=== PATIENT | female | born 1945 | race American Indian/Alaskan Native ===

== ENCOUNTER 2018-10-16 12:27 | Observation (INO) | payer MEDICARE, OTHER ==
[2018-10-16 12:34] VITALS: BMI 26.0
--- NOTE | 2018-10-16 14:07 | ED PDOC ---
Arrival/HPI - General Chief Complaint: Syncope Time Seen by Provider: 10/16/18 12:31 Historian: Patient, Family - History of Present Illness Narrative History of Present Illness (Text): 10/16/18 14:04 73-year-old female presents today with right knee and left ankle pain status post syncopal episode last night. Patient states she was taking care of her grandchild and suddenly started to feel dizzy. I spoke with the patient's daughter who states that the patient passed out on the ground and was unconscious for a few seconds. Patient denies chest pain or shortness of breath. She denies neck or back pain. She denies abdominal pain. Patient denies fevers or chills. Patient states that due to the fall she injured her right knee and her left ankle. No medications have been taken for pain at home. Patient states she did not come to the emergency room last night but her daughter watched her at home for a few hours until she was feeling better. Patient denies dizziness at present time. No other complaints Past Medical History - Provider Review Nursing Documentation Reviewed: Yes - Travel History Have you recently traveled outside [place] w/in the past 3 mons?: No - Infectious Disease Hx of Infectious Diseases: None - Cardiac Hx Hypertension: Yes - Pulmonary Hx Asthma: Yes - HEENT Hx HEENT Disorder: Yes (WEARS RX GLASSES) Hx Glaucoma: Yes - Renal Hx Renal Disorder: No - Endocrine/Metabolic Hx Endocrine Disorders: No - Hematological/Oncological Hx Blood Disorders: No - Integumentary Hx Dermatological Disorder: No - Musculoskeletal/Rheumatological Hx Arthritis: Yes - Gastrointestinal Hx Gastrointestinal Disorders: Yes (HERNIORHAPPHY) - Genitourinary/Gynecological Hx Genitourinary Disorders: Yes (3 CAESEREAN SECTIONS,ONE STILL ,,RIGHT BREAST REMOVAL OF SCAR TISSUE,) Other/Comment: TUBAL LIGATION - Psychiatric Hx Depression: No Hx Emotional Abuse: No Hx Physical Abuse: No Hx Substance Use: No - Past Surgical History Past Surgical History: Non-Contributing - Surgical History Hx Section: Yes - Anesthesia Hx Anesthesia: Yes Hx Anesthesia Reactions: No Hx Malignant Hyperthermia: No - Suicidal Assessment Feels Threatened In Home Enviroment: No Family/Social History - Physician Review Nursing Documentation Reviewed: Yes Family/Social History: Unknown Family HX Smoking Status: Never Smoked Hx Alcohol Use: No Hx Substance Use: No Allergies/Home Meds Allergies/Adverse Reactions: Allergies acetaminophen [From Percocet] Allergy (Verified 10/16/18 12:35) VOMITING codeine Allergy (Verified 10/16/18 12:35) SHORTNESS OF BREATH oxycodone [From Percocet] Allergy (Verified 10/16/18 12:35) VOMITING Home Medications: Home Meds Medication Instructions Recorded Confirmed Amlodipine/Valsartan 1 tab PO DAILY 10/16/18 10/16/18 [Amlodipine-Valsartan 10-160 mg] Aspirin [Adult Low Dose Aspirin EC] 1 tab PO DAILY 10/16/18 10/16/18 Atorvastatin [Lipitor] 1 tab PO HS 10/16/18 10/16/18 Clopidogrel [Plavix] 1 tab PO DAILY 10/16/18 10/16/18 Ferrous Sulfate [Feosol] 1 tab PO DAILY 10/16/18 10/16/18 Review of Systems - Review of Systems Constitutional: Fatigue. absent: Fevers ENT: absent: Sore Throat, Sinus Congestion Respiratory: absent: SOB, Cough Cardiovascular: Syncope. absent: Chest Pain, Palpitations Gastrointestinal: absent: Abdominal Pain, Nausea, Vomiting Genitourinary Female: absent: Dysuria, Frequency Musculoskeletal: Arthralgias. absent: Back Pain, Neck Pain Skin: absent: Rash, Pruritis Neurological: Dizziness. absent: Headache Psychiatric: absent: Anxiety, Depression Physical Exam Vital Signs Temp Pulse Resp BP Pulse Ox 10/16/18 12:45 97.4 F L 84 18 156/69 H 97 Temperature: Afebrile Blood Pressure: Hypertensive Pulse: Regular Respiratory Rate: Normal Appearance: Positive for: Well-Appearing, Non-Toxic, Comfortable Pain Distress: None Mental Status: Positive for: Alert and Oriented X 3 - Systems Exam Head: Present: Atraumatic Mouth: Present: Moist Mucous Membranes Neck: Present: Normal Range of Motion Respiratory/Chest: Present: Clear to Auscultation, Good Air Exchange. No: Respiratory Distress, Accessory Muscle Use Cardiovascular: Present: Regular Rate and Rhythm, Normal S1, S2. No: Murmurs Abdomen: No: Tenderness, Distention, Peritoneal Signs, Rebound, Guarding Back: Present: Normal Inspection Upper Extremity: Present: Normal Inspection, Normal ROM Lower Extremity: Present: Tenderness (right knee; + ttp over medial aspect of the knee; full rom of knee with pain; left ankle; + edema and tenderness over the lateral malleolus. sensation intact. cap refill <2. ), Swelling Neurological: Present: GCS=15, Speech Normal Skin: Present: Warm, Dry, Normal Color. No: Rashes Psychiatric: Present: Alert, Oriented x 3 Medical Decision Making ED Course and Treatment: 10/16/18 14:53 73yr old female presents today with syncopal episode, now with right knee pain and left ankle pain. cbc;wnl cmp; wnl trop: wnl bnp: 535 ekg;NSR at 81 b/m no st elevations. normal axis; normal intervals. cxr: wnl xray right knee; no fracture xray left ankle; no fracture ct head; IMPRESSION: Nonspecific white matter changes. pt reassessment; pt resting comfortably in er. no distress. asa given PO case discussed with Dr. case in depth. will Admit observational status to Tele for syncope impression; syncope, knee pain, ankle pain Admit observational status to tele - RAD Interpretation Radiology Orders: 10/16/18 13:30 HEAD W/O CONTRAST [CT] Stat 10/16/18 13:31 CHEST PORTABLE [RAD] Stat ANKLE LEFT 3 VIEWS ROUTINE [RAD] Stat KNEE W PATELLA RIGHT 3 VIEW [RAD] Stat Disposition/Present on Arrival - Present on Arrival Any Indicators Present on Arrival: No History of DVT/PE: No History of Uncontrolled Diabetes: No Urinary Catheter: No History of Decub. Ulcer: No History Surgical Site Infection Following: None - Disposition Have Diagnosis and Disposition been Completed?: Yes Diagnosis: Syncope, Knee pain, Ankle pain Disposition: HOSPITALIZED Disposition Time: 16:00 Patient Plan: Observation Condition: FAIR Discharge Instructions (ExitCare): Syncope (ED) Referrals: David Darby MD [Primary Care Provider] - Follow up with primary
[2018-10-16 14:13] LABS: BASO # 0.02 K/mm3 (0.0-2.0); BASO % 0.2 % (0.0-3.0); EOS % 0.4 % (1.5-5.0); HEMOGLOBIN 12.1 g/dL (12.0-16.0); LYMPH # 2.2 (1.2-3.4); LYMPH % 26.1 % (22.0-35.0); MEAN CELL VOLUME 87.6 fl (80.0-105.0); MEAN CORPUSCULAR HEMOGLOBIN 28.3 pg (25.0-35.0); MEAN CORPUSCULAR HGB CONC 32.4 g/dl (31.0-37.0); MEAN PLATELET VOLUME 10.5 fl (7.0-11.0); MONO # 0.9 (0.1-0.6); MONO % 10.7 % (1.0-6.0); PH,URINE 6.5 (4.7-8.0); RBC 4.27 10^6/uL (3.5-6.1); RED CELL DISTRIBUTION WIDTH 13.9 % (11.5-14.5); URINE BILIRUBIN NEGATIVE (NEGATIVE); URINE BLOOD NEGATIVE (NEGATIVE); URINE GLUCOSE (UA) NEGATIVE (NEGATIVE); URINE LEUKOCYTE ESTERASE NEGATIVE Leu/uL (NEGATIVE); URINE PROTEIN NEGATIVE mg/dL (<30 mg/dL); URINE UROBILINOGEN 0.2 E.U./dL (<1 E.U./dL); WHITE BLOOD COUNT 8.5 10^3/uL (4.5-11.0)
[2018-10-16 14:17] LABS: URINE APPEARANCE CLEAR (CLEAR); URINE COLOR STRAW (YELLOW)
[2018-10-16 14:20] LABS: INR 1.11; PARTIAL THROMBOPLASTIN TIME 29.8 Seconds (26.9-38.3); PROTHROMBIN TIME 12.3 SECONDS (9.4-12.5)
[2018-10-16 14:21] LABS: ALB/GLOB RATIO 1.1 (1.1-1.8); ALBUMIN 4.4 g/dL (3.0-4.8); ALT/SGPT 26 U/L (7-56); AST/SGOT 33 U/L (14-36); BLOOD UREA NITROGEN 16 mg/dL (7-21); CALCIUM 10.2 mg/dL (8.4-10.5); GFR NON-AFRICAN AMERICAN > 60; LIPASE 272 U/L (23-300)
[2018-10-16 14:33] LABS: B-TYPE NATRIURETIC PEPTIDE 535 pg/mL (0-450); TROPONIN I < 0.01 ng/mL
--- NOTE | 2018-10-16 14:39 | CT ---
Date of service: 10/16/2018 PROCEDURE: CT HEAD WITHOUT CONTRAST. HISTORY: syncope COMPARISON: None available. TECHNIQUE: Axial computed tomography images were obtained through the head/brain without intravenous contrast. Radiation dose: Total exam DLP = 912.56 mGy-cm. This CT exam was performed using one or more of the following dose reduction techniques: Automated exposure control, adjustment of the mA and/or kV according to patient size, and/or use of iterative reconstruction technique. FINDINGS: HEMORRHAGE: No intracranial hemorrhage. BRAIN: No mass effect or edema. Scattered periventricular and subcortical white matter hypodensities, which are nonspecific, but often seen with chronic microvascular ischemic disease. Please note that MRI with diffusion imaging is more sensitive in the detection of acute ischemic event. VENTRICLES: No hydrocephalus. CALVARIUM: Unremarkable. PARANASAL SINUSES: Unremarkable as visualized. No significant inflammatory changes. MASTOID AIR CELLS: Unremarkable as visualized. No inflammatory changes. OTHER FINDINGS: None. IMPRESSION: Nonspecific white matter changes. Please note that MRI with diffusion imaging is more sensitive in the detection of acute ischemic event.
--- NOTE | 2018-10-16 14:58 | RAD ---
HISTORY: syncope COMPARISON: Chest xray performed 09/30/13 TECHNIQUE: Chest, one view. FINDINGS: LUNGS: No focal consolidation. Please note that chest x-ray has limited sensitivity for the detection of pulmonary masses. PLEURA: No significant pleural effusion identified. No definite pneumothorax . CARDIOVASCULAR: The cardiomediastinal silhouette appears within normal limits of size. Dense atherosclerotic calcifications. OSSEOUS STRUCTURES: No acute osseous abnormality identified. VISUALIZED UPPER ABDOMEN: Unremarkable. OTHER FINDINGS: None. IMPRESSION: No focal consolidation.
--- NOTE | 2018-10-16 15:02 | RAD ---
PROCEDURE: Right Knee Radiographs. 2 views. HISTORY: knee pain COMPARISON: Bilateral knee radiographs performed 12/23/12 FINDINGS: BONES: No acute displaced fracture. JOINTS: No dislocation. JOINT EFFUSION: Small suprapatellar effusion. OTHER FINDINGS: None. IMPRESSION: Small suprapatellar effusion. No acute displaced fracture or dislocation identified. If symptoms persist, or if there is continued clinical concern, x-ray follow-up in 7-10 days should be considered.
--- NOTE | 2018-10-16 15:07 | RAD ---
PROCEDURE: Left ankle Radiographs. Three views. HISTORY: ankle pain COMPARISON: None available. FINDINGS: BONES: No acute displaced fracture. JOINTS: No dislocation. SOFT TISSUES: Mild soft tissue swelling. No evidence of radiopaque foreign body. OTHER FINDINGS: None. IMPRESSION: Mild soft tissue swelling. No acute displaced fracture or dislocation identified. If high clinical index of suspicion for occult fracture, suggest cross-sectional imaging.
--- NOTE | 2018-10-16 16:26 | CP.PCM.HP ---
<Negro Mayer - Last Filed: 10/16/18 18:40> History of Present Illness - History of Present Illness History of Present Illness: Negro Mayer, PGY1 H&P for Dr. Sarmiento cc: "syncope" Patient is a 73-year-old female with PMHx HTN, stress incontinence, glaucoma, PVD (bilateral stents in the legs), Asthma who presented to the ED with left ankle pain and right knee pain s/p syncopal episode. She said she was sitting in her chair yesterday and eating breakfast when she passed out and lost consciousness. Patient's daughter was with her and said this episode lasted for 10 minutes in duration. Patient did not have any chest pain, shortness of breath, or palpitations during this incident. She did have some dizziness and a vomiting episode after waking up. She was not post-ictal afterwards. She denied any tongue biting and loss of bowel/bladder during the incident. Patient endorses some fatigue. Currently, she denies cp, sob, n/v/d, headache, dizziness. She said this is the first time this episode has happened. The reason she waiting a day to come in to the hospital is because she said she had to take care of her granddaughter. Patient claims she was previously admitted to a different hospital ([facility] for which she was admitted for 2 weeks. Patient is not a reliable historian. A full 12 point ROS was conducted and unremarkable except as stated above. PMHx: HTN, stress incontinence, glaucoma, PVD (bilateral stents in the legs), Asthma PSHx: denies Meds: see MAR Allergies: codeine, acetaminophen, oxycodone SocialHx: denies EtOH, smoking, illicit drug use. FamHx: non-contributory Present on Admission - Present on Admission Any Indicators Present on Admission: No Review of Systems - Review of Systems All systems: reviewed and no additional remarkable complaints except (as per HPI) Past Patient History - Infectious Disease Hx of Infectious Diseases: None - Past Social History Smoking Status: Never Smoked - CARDIAC Hx Hypertension: Yes - PULMONARY Hx Asthma: Yes - HEENT Hx HEENT Problems: Yes (WEARS RX GLASSES) Hx Glaucoma: Yes - RENAL Hx Chronic Kidney Disease: No - ENDOCRINE/METABOLIC Hx Endocrine Disorders: No - HEMATOLOGICAL/ONCOLOGICAL Hx Blood Disorders: No - INTEGUMENTARY Hx Dermatological Problems: No - MUSCULOSKELETAL/RHEUMATOLOGICAL Hx Arthritis: Yes - GASTROINTESTINAL Hx Gastrointestinal Disorders: Yes (HERNIORHAPPHY) - GENITOURINARY/GYNECOLOGICAL Hx Genitourinary Disorders: Yes (3 CAESEREAN SECTIONS,ONE STILL ,,RIGHT BREAST REMOVAL OF SCAR TISSUE,) Other/Comment: TUBAL LIGATION - PSYCHIATRIC Hx Depression: No Hx Emotional Abuse: No Hx Physical Abuse: No Hx Substance Use: No - SURGICAL HISTORY Hx Section: Yes - ANESTHESIA Hx Anesthesia: Yes Hx Anesthesia Reactions: No Hx Malignant Hyperthermia: No Meds Allergies/Adverse Reactions: Allergies Allergy/AdvReac Type Severity Reaction Status Date / Time acetaminophen [From Percocet] Allergy VOMITING Verified 10/16/18 12:35 codeine Allergy SHORTNESS Verified 10/16/18 12:35 OF BREATH oxycodone [From Percocet] Allergy VOMITING Verified 10/16/18 12:35 Physical Exam - Constitutional Appears: No Acute Distress - Head Exam Head Exam: ATRAUMATIC, NORMAL INSPECTION, NORMOCEPHALIC - Eye Exam Eye Exam: EOMI, Normal appearance Pupil Exam: NORMAL ACCOMODATION, PERRL - ENT Exam ENT Exam: Mucous Membranes Moist - Respiratory Exam Respiratory Exam: Clear to Auscultation Bilateral, NORMAL BREATHING PATTERN. absent: Chest Wall Tenderness, Rales, Rhonchi, Wheezes, Respiratory Distress - Cardiovascular Exam Cardiovascular Exam: RRR, +S1, +S2 - GI/Abdominal Exam GI & Abdominal Exam: Normal Bowel Sounds, Soft. absent: Firm, Guarding, Hernia, Rebound, Rigid, Tenderness - Extremities Exam Extremities exam: Positive for: normal capillary refill, pedal pulses present. Negative for: calf tenderness, full ROM Additional comments: Left ankle is tender to palpation. Right knee has a mild effusion. - Back Exam Back exam: NORMAL INSPECTION - Neurological Exam Neurological exam: Alert, CN II-XII Intact, Oriented x3, Reflexes Normal - Psychiatric Exam Psychiatric exam: Normal Affect, Normal Mood - Skin Skin Exam: Dry, Intact, Normal Color, Warm Results - Vital Signs Recent Vital Signs: Last Vital Signs Temp 97.4 F L 10/16/18 12:45 Pulse 84 10/16/18 12:45 Resp 18 10/16/18 12:45 BP 156/69 H 10/16/18 12:45 Pulse Ox 97 10/16/18 12:45 - Labs Result Diagrams: 10/16/18 14:00 10/16/18 14:00 Labs: Laboratory Results - last 24 hr 10/16/18 10/16/18 10/16/18 14:00 14:00 14:00 WBC 8.5 RBC 4.27 Hgb 12.1 Hct 37.4 MCV 87.6 MCH 28.3 MCHC 32.4 RDW 13.9 Plt Count 311 MPV 10.5 Neut % (Auto) 62.6 Lymph % (Auto) 26.1 [place] % (Auto) 10.7 H Eos % (Auto) 0.4 L Baso % (Auto) 0.2 Lymph # (Auto) 2.2 [place] # (Auto) 0.9 H Eos # (Auto) 0.0 Baso # (Auto) 0.02 Absolute Neuts (auto) 5.31 PT INR APTT Sodium 140 Potassium 4.0 Chloride 104 Carbon Dioxide 27 Anion Gap 14 BUN 16 Creatinine 0.7 Est GFR ( Amer) > 60 Est GFR (Non-Af Amer) > 60 Random Glucose 98 Calcium 10.2 Total Bilirubin 0.5 AST 33 ALT 26 Alkaline Phosphatase 93 Lactate Dehydrogenase 575 Total Creatine Kinase 96 Troponin I < 0.01 NT-Pro-B Natriuret Pep 535 H Total Protein 8.3 Albumin 4.4 Globulin 3.9 Albumin/Globulin Ratio 1.1 Lipase 272 Urine Color Straw Urine Appearance Clear Urine pH 6.5 Ur Specific [place] <= 1.005 Urine Protein Negative Urine Glucose (UA) Negative Urine Ketones Negative Urine Blood Negative Urine Nitrate Negative Urine Bilirubin Negative Urine Urobilinogen 0.2 Ur Leukocyte Esterase Negative 10/16/18 14:00 WBC RBC Hgb Hct MCV MCH MCHC RDW Plt Count MPV Neut % (Auto) Lymph % (Auto) [place] % (Auto) Eos % (Auto) Baso % (Auto) Lymph # (Auto) [place] # (Auto) Eos # (Auto) Baso # (Auto) Absolute Neuts (auto) PT 12.3 INR 1.11 APTT 29.8 Sodium Potassium Chloride Carbon Dioxide Anion Gap BUN Creatinine Est GFR ( Amer) Est GFR (Non-Af Amer) Random Glucose Calcium Total Bilirubin AST ALT Alkaline Phosphatase Lactate Dehydrogenase Total Creatine Kinase Troponin I NT-Pro-B Natriuret Pep Total Protein Albumin Globulin Albumin/Globulin Ratio Lipase Urine Color Urine Appearance Urine pH Ur Specific [place] Urine Protein Urine Glucose (UA) Urine Ketones Urine Blood Urine Nitrate Urine Bilirubin Urine Urobilinogen Ur Leukocyte Esterase Assessment & Plan - Assessment and Plan (Free Text) Assessment: Patient is a 73-year-old female with PMHx HTN, stress incontinence, glaucoma, PVD (bilateral stents in the legs), Asthma who presented to the ED with left ankle pain and right knee pain s/p syncopal episode. Patient will be admitted for syncope. Plan: Syncope - monitor on tele - trend trops q6; initial negative x1 - fall precautions - neurochecks - seizure precautions - echo - CT Head: no acute changes - CXR: no acute changes - orthostatic vital signs - Cardiology on consult (Dr. Lucero). Follow up recs. - EKG: NSR with no acute ST or T wave changes. Left Ankle Pain and Right Knee Pain likely due to muscle strain - s/p syncopal episode - PT - left ankle brace - pain control with toradol 15mg IVP q6 prn - Left Ankle XR: mild soft tissue swelling, no fracture - Right Knee XR: small supra-patellar effusion; no fracture HTN - resume home BP med PVD (Stents in bilateral legs) - resume home asa and plavix - Cardio on consult Asthma - duonebs prn - no symptoms at this time ppx: - hep sc Diet: HHD Dispo: Observe patient on tele. Further recs from cardio. Case was discussed and reviewed with Dr. Sarmiento. <Marcela Sarmiento - Last Filed: 10/17/18 11:49> Results - Vital Signs Recent Vital Signs: Last Vital Signs Temp 98.2 F 10/17/18 06:00 Pulse 64 10/17/18 06:00 Resp 19 10/17/18 06:00 BP 146/67 10/17/18 10:23 Pulse Ox 99 10/16/18 20:42 - Labs Result Diagrams: 10/17/18 07:00 10/17/18 07:00 Labs: Laboratory Results - last 24 hr 10/16/18 10/16/18 10/16/18 14:00 14:00 14:00 WBC 8.5 RBC 4.27 Hgb 12.1 Hct 37.4 MCV 87.6 MCH 28.3 MCHC 32.4 RDW 13.9 Plt Count 311 MPV 10.5 Neut % (Auto) 62.6 Lymph % (Auto) 26.1 [place] % (Auto) 10.7 H Eos % (Auto) 0.4 L Baso % (Auto) 0.2 Lymph # (Auto) 2.2 [place] # (Auto) 0.9 H Eos # (Auto) 0.0 Baso # (Auto) 0.02 Absolute Neuts (auto) 5.31 PT INR APTT Sodium 140 Potassium 4.0 Chloride 104 Carbon Dioxide 27 Anion Gap 14 BUN 16 Creatinine 0.7 Est GFR ( Amer) > 60 Est GFR (Non-Af Amer) > 60 Random Glucose 98 Calcium 10.2 Phosphorus Magnesium Total Bilirubin 0.5 AST 33 ALT 26 Alkaline Phosphatase 93 Lactate Dehydrogenase 575 Total Creatine Kinase 96 Troponin I < 0.01 NT-Pro-B Natriuret Pep 535 H Total Protein 8.3 Albumin 4.4 Globulin 3.9 Albumin/Globulin Ratio 1.1 Lipase 272 Urine Color Straw Urine Appearance Clear Urine pH 6.5 Ur Specific [place] <= 1.005 Urine Protein Negative Urine Glucose (UA) Negative Urine Ketones Negative Urine Blood Negative Urine Nitrate Negative Urine Bilirubin Negative Urine Urobilinogen 0.2 Ur Leukocyte Esterase Negative 10/16/18 10/17/18 10/17/18 14:00 01:00 07:00 WBC RBC Hgb Hct MCV MCH MCHC RDW Plt Count MPV Neut % (Auto) Lymph % (Auto) [place] % (Auto) Eos % (Auto) Baso % (Auto) Lymph # (Auto) [place] # (Auto) Eos # (Auto) Baso # (Auto) Absolute Neuts (auto) PT 12.3 INR 1.11 APTT 29.8 Sodium 142 Potassium 3.9 Chloride 106 Carbon Dioxide 29 Anion Gap 11 BUN 14 Creatinine 0.8 Est GFR ( Amer) > 60 Est GFR (Non-Af Amer) > 60 Random Glucose 88 Calcium 9.8 Phosphorus 4.0 Magnesium 1.8 Total Bilirubin 0.4 AST 32 ALT 22 Alkaline Phosphatase 80 Lactate Dehydrogenase Total Creatine Kinase Troponin I < 0.01 NT-Pro-B Natriuret Pep Total Protein 7.4 Albumin 3.9 Globulin 3.4 Albumin/Globulin Ratio 1.1 Lipase Urine Color Urine Appearance Urine pH Ur Specific [place] Urine Protein Urine Glucose (UA) Urine Ketones Urine Blood Urine Nitrate Urine Bilirubin Urine Urobilinogen Ur Leukocyte Esterase 10/17/18 07:00 WBC 5.5 D RBC 3.85 Hgb 10.7 L Hct 33.7 L MCV 87.5 MCH 27.8 MCHC 31.8 RDW 13.8 Plt Count 302 MPV 10.5 Neut % (Auto) 51.1 Lymph % (Auto) 37.6 H [place] % (Auto) 10.2 H Eos % (Auto) 0.7 L Baso % (Auto) 0.4 Lymph # (Auto) 2.1 [place] # (Auto) 0.6 Eos # (Auto) 0.0 Baso # (Auto) 0.02 Absolute Neuts (auto) 2.82 PT INR APTT Sodium Potassium Chloride Carbon Dioxide Anion Gap BUN Creatinine Est GFR ( Amer) Est GFR (Non-Af Amer) Random Glucose Calcium Phosphorus Magnesium Total Bilirubin AST ALT Alkaline Phosphatase Lactate Dehydrogenase Total Creatine Kinase Troponin I NT-Pro-B Natriuret Pep Total Protein Albumin Globulin Albumin/Globulin Ratio Lipase Urine Color Urine Appearance Urine pH Ur Specific [place] Urine Protein Urine Glucose (UA) Urine Ketones Urine Blood Urine Nitrate Urine Bilirubin Urine Urobilinogen Ur Leukocyte Esterase Attending/Attestation - Attestation I have personally seen and examined this patient.: Yes I have fully participated in the care of the patient.: Yes I have reviewed all pertinent clinical information: Yes Notes (Text): 10/17/18 11:45 Medical record note made by the resident after discussion with my direction and input after the patient was personally seen and examined by me. I have reviewed the chart and agree that the record accurately reflects by personal performance of the history, physical exam, data review, and medical decision-making, in the course for the patient. I have also personally directed the plan of care. 73-year-old female with PMH of HTN, , glaucoma, PVD (bilateral stents in the legs), PUD is admitted with , H/O fall from chair 10/14/18 and loss of consciousness for 10 minutes,patient is also c/o left ankle pain and right knee pain. CT head is negative. X rays are negative for fracture, has left ankle strain. We will monitor patient in telemetry for arrhythmia, we will get 2D Echo, and will also get Cardiology consult. We will also get Physical therapy evaluation. Management plan was discussed in detail with patient. Education was provided.
[2018-10-16] MEDS ORDERED: Albuterol-Ipratrop 3 mg / 0.5 (3 ml) UD IH PRN (18:04)
[2018-10-16] MEDS ORDERED: Pneumococcal 23-Valent Vaccine IM ONE (21:48)
[2018-10-16] MEDS ORDERED: Influenza Vaccine 60 mcg/0.5 mL SYR (4YR UP) IM ONE (21:48)
--- NOTE | 2018-10-16 22:32 | CARD ---
APPROVED REPORT Date of service: 10/16/2018 EKG Measurement Heart [id number] <Conclusion> Normal sinus rhythm Normal ECG
[2018-10-16] MEDS: COMBIGAN EYE OU SCH (23:35)
[2018-10-17 07:55] LABS: BASO # 0.02 K/mm3 (0.0-2.0); BASO % 0.4 % (0.0-3.0); EOS % 0.7 % (1.5-5.0); HEMOGLOBIN 10.7 g/dL (12.0-16.0); LYMPH # 2.1 (1.2-3.4); LYMPH % 37.6 % (22.0-35.0); MEAN CELL VOLUME 87.5 fl (80.0-105.0); MEAN CORPUSCULAR HEMOGLOBIN 27.8 pg (25.0-35.0); MEAN CORPUSCULAR HGB CONC 31.8 g/dl (31.0-37.0); MEAN PLATELET VOLUME 10.5 fl (7.0-11.0); MONO # 0.6 (0.1-0.6); MONO % 10.2 % (1.0-6.0); RBC 3.85 10^6/uL (3.5-6.1); RED CELL DISTRIBUTION WIDTH 13.8 % (11.5-14.5); WHITE BLOOD COUNT 5.5 10^3/uL (4.5-11.0)
[2018-10-17 08:09] LABS: ALB/GLOB RATIO 1.1 (1.1-1.8); ALBUMIN 3.9 g/dL (3.0-4.8); ALT/SGPT 22 U/L (7-56); AST/SGOT 32 U/L (14-36); BLOOD UREA NITROGEN 14 mg/dL (7-21); CALCIUM 9.8 mg/dL (8.4-10.5); GFR NON-AFRICAN AMERICAN > 60
--- NOTE | 2018-10-17 09:25 | CP.PCM.CON ---
History of Present Illness - History of Present Illness History of Present Illness: Awake, alert, complaining of left ankle and right knee pain Reason for consultation: Cardiac evaluation of syncopal episode Brief history of present illness: A 73 year old female who came in to the ER due to syncopal episode causing to fall and left ankle pain and right knee pain post syncopal episode. History of hypertension, stress incontinence, glaucoma, peripheral vascular disease (bilateral stents in the legs), asthma Seen and examined by me and Dr. Lucero Review of Systems - Review of Systems All systems: reviewed and no additional remarkable complaints except Review of Systems: as per HPI Past Patient History - Infectious Disease Hx of Infectious Diseases: None - Past Social History Smoking Status: Never Smoked - CARDIAC Hx Cardiac Disorders: Yes Hx Hypercholesterolemia: Yes Hx Hypertension: Yes Hx Peripheral Vascular Disease: Yes (b/l stents in legs) Other/Comment: cp in 2013 - PULMONARY Hx Respiratory Disorders: Yes Hx Asthma: Yes Other/Comment: sx to remove lung mass years ago benign - NEUROLOGICAL Hx Neurological Disorder: Yes (pinched nerve left foot) - HEENT Hx HEENT Problems: Yes (WEARS RX GLASSES) Hx Glaucoma: Yes - RENAL Hx Chronic Kidney Disease: No - ENDOCRINE/METABOLIC Hx Endocrine Disorders: No - HEMATOLOGICAL/ONCOLOGICAL Hx Blood Disorders: No - INTEGUMENTARY Hx Dermatological Problems: No Other/Comment: right swelling bruising pain & left ankle swelling bruising pain from syncopal episode last night, dry skin to both feet - MUSCULOSKELETAL/RHEUMATOLOGICAL Hx Falls: Yes (passed out and fell 10/15/18) - GASTROINTESTINAL Hx Gastrointestinal Disorders: Yes (HERNIORHAPPHY) - GENITOURINARY/GYNECOLOGICAL Hx Genitourinary Disorders: Yes (3 CAESEREAN SECTIONS,ONE STILL ,,RIGHT BREAST REMOVAL OF SCAR TISSUE,) Hx Incontinence: Yes (leaking & stress incontinence) Other/Comment: TUBAL LIGATION - PSYCHIATRIC Hx Substance Use: No - SURGICAL HISTORY Hx Surgeries: Yes (BILATERAL FOOT SURGERY FROM FALL,TUBAL LIGATION,3 C/S,LUNG SURGERY,HAMMERTO) Other/Comment: surgical removal of scar tissue from right breast due to an injury, hammertoes with sx x 2 - ANESTHESIA Hx Anesthesia: Yes Hx Anesthesia Reactions: No Hx Malignant Hyperthermia: No Meds Allergies/Adverse Reactions: Allergies Allergy/AdvReac Type Severity Reaction Status Date / Time acetaminophen [From Percocet] Allergy VOMITING Verified 10/16/18 12:35 codeine Allergy SHORTNESS Verified 10/16/18 12:35 OF BREATH oxycodone [From Percocet] Allergy VOMITING Verified 10/16/18 12:35 - Medications Medications: Current Medications Albuterol/Ipratropium (Duoneb 3 Mg/0.5 Mg (3 Ml) Ud) 3 ml IH Q4H PRN PRN Reason: Shortness of Breath Amlodipine Besylate (Norvasc) 10 mg PO DAILY [facility] Aspirin (Ecotrin) 81 mg PO DAILY [facility] Atorvastatin Calcium (Lipitor) 20 mg PO HS [facility] Last Admin: 10/16/18 23:00 Dose: Not Given Clopidogrel Bisulfate (Plavix) 75 mg PO DAILY [facility] Ferrous Sulfate (Feosol) 324 mg PO DAILY [facility] Heparin Sodium (Porcine) (Heparin) 5,000 units SC Q8 [facility]; Protocol Last Admin: 10/17/18 05:21 Dose: 5,000 units Home Med (Home Med) 1 unit OU BID [facility] Last Admin: 10/16/18 23:35 Dose: 1 unit Ibuprofen (Motrin Tab) 600 mg PO Q6H PRN PRN Reason: Pain, moderate (4-7) Ketorolac Tromethamine (Toradol) 15 mg IVP Q6 PRN PRN Reason: Pain, severe (8-10) Losartan Potassium (Cozaar) 100 mg PO DAILY [facility] Pantoprazole Sodium (Protonix Ec Tab) 40 mg PO 0600 [facility] Physical Exam - Constitutional Appears: Non-toxic, No Acute Distress - Head Exam Head Exam: NORMAL INSPECTION, NORMOCEPHALIC - Eye Exam Eye Exam: Normal appearance Pupil Exam: NORMAL ACCOMODATION - ENT Exam ENT Exam: Mucous Membranes Moist, Normal Exam - Respiratory Exam Respiratory Exam: Decreased Breath Sounds, Clear to Auscultation Bilateral, NORMAL BREATHING PATTERN - Cardiovascular Exam Cardiovascular Exam: REGULAR RHYTHM, +S1, +S2 - GI/Abdominal Exam GI & Abdominal Exam: Normal Bowel Sounds, Soft - Extremities Exam Additional comments: limited ROM, left ankle swelling, right knee swelling - Neurological Exam Neurological exam: Alert, Oriented x3 - Psychiatric Exam Psychiatric exam: Normal Affect, Normal Mood - Skin Skin Exam: Dry, Normal Color, Warm Results - Vital Signs Recent Vital Signs: Last Vital Signs Temp 98.2 F 10/17/18 06:00 Pulse 64 10/17/18 06:00 Resp 19 10/17/18 06:00 BP 132/65 10/17/18 06:00 Pulse Ox 99 10/16/18 20:42 - Labs Result Diagrams: 10/17/18 07:00 10/17/18 07:00 Labs: Laboratory Results - last 24 hr 10/16/18 10/16/18 10/16/18 14:00 14:00 14:00 WBC 8.5 RBC 4.27 Hgb 12.1 Hct 37.4 MCV 87.6 MCH 28.3 MCHC 32.4 RDW 13.9 Plt Count 311 MPV 10.5 Neut % (Auto) 62.6 Lymph % (Auto) 26.1 [place] % (Auto) 10.7 H Eos % (Auto) 0.4 L Baso % (Auto) 0.2 Lymph # (Auto) 2.2 [place] # (Auto) 0.9 H Eos # (Auto) 0.0 Baso # (Auto) 0.02 Absolute Neuts (auto) 5.31 PT INR APTT Sodium 140 Potassium 4.0 Chloride 104 Carbon Dioxide 27 Anion Gap 14 BUN 16 Creatinine 0.7 Est GFR ( Amer) > 60 Est GFR (Non-Af Amer) > 60 Random Glucose 98 Calcium 10.2 Phosphorus Magnesium Total Bilirubin 0.5 AST 33 ALT 26 Alkaline Phosphatase 93 Lactate Dehydrogenase 575 Total Creatine Kinase 96 Troponin I < 0.01 NT-Pro-B Natriuret Pep 535 H Total Protein 8.3 Albumin 4.4 Globulin 3.9 Albumin/Globulin Ratio 1.1 Lipase 272 Urine Color Straw Urine Appearance Clear Urine pH 6.5 Ur Specific Abrams <= 1.005 Urine Protein Negative Urine Glucose (UA) Negative Urine Ketones Negative Urine Blood Negative Urine Nitrate Negative Urine Bilirubin Negative Urine Urobilinogen 0.2 Ur Leukocyte Esterase Negative 10/16/18 10/17/18 10/17/18 14:00 01:00 07:00 WBC RBC Hgb Hct MCV MCH MCHC RDW Plt Count MPV Neut % (Auto) Lymph % (Auto) [place] % (Auto) Eos % (Auto) Baso % (Auto) Lymph # (Auto) [place] # (Auto) Eos # (Auto) Baso # (Auto) Absolute Neuts (auto) PT 12.3 INR 1.11 APTT 29.8 Sodium 142 Potassium 3.9 Chloride 106 Carbon Dioxide 29 Anion Gap 11 BUN 14 Creatinine 0.8 Est GFR ( Amer) > 60 Est GFR (Non-Af Amer) > 60 Random Glucose 88 Calcium 9.8 Phosphorus 4.0 Magnesium 1.8 Total Bilirubin 0.4 AST 32 ALT 22 Alkaline Phosphatase 80 Lactate Dehydrogenase Total Creatine Kinase Troponin I < 0.01 NT-Pro-B Natriuret Pep Total Protein 7.4 Albumin 3.9 Globulin 3.4 Albumin/Globulin Ratio 1.1 Lipase Urine Color Urine Appearance Urine pH Ur Specific Abrams Urine Protein Urine Glucose (UA) Urine Ketones Urine Blood Urine Nitrate Urine Bilirubin Urine Urobilinogen Ur Leukocyte Esterase 10/17/18 07:00 WBC 5.5 D RBC 3.85 Hgb 10.7 L Hct 33.7 L MCV 87.5 MCH 27.8 MCHC 31.8 RDW 13.8 Plt Count 302 MPV 10.5 Neut % (Auto) 51.1 Lymph % (Auto) 37.6 H [place] % (Auto) 10.2 H Eos % (Auto) 0.7 L Baso % (Auto) 0.4 Lymph # (Auto) 2.1 [place] # (Auto) 0.6 Eos # (Auto) 0.0 Baso # (Auto) 0.02 Absolute Neuts (auto) 2.82 PT INR APTT Sodium Potassium Chloride Carbon Dioxide Anion Gap BUN Creatinine Est GFR ( Amer) Est GFR (Non-Af Amer) Random Glucose Calcium Phosphorus Magnesium Total Bilirubin AST ALT Alkaline Phosphatase Lactate Dehydrogenase Total Creatine Kinase Troponin I NT-Pro-B Natriuret Pep Total Protein Albumin Globulin Albumin/Globulin Ratio Lipase Urine Color Urine Appearance Urine pH Ur Specific Abrams Urine Protein Urine Glucose (UA) Urine Ketones Urine Blood Urine Nitrate Urine Bilirubin Urine Urobilinogen Ur Leukocyte Esterase Assessment & Plan - Assessment and Plan (Free Text) Assessment: Brief history of present illness: A 73 year old female who came in to the ER due to syncopal episode causing to loose conciousness for few seconds per daughter. Also complaining of left ankle pain and right knee pain post syncopal episode. History of hypertension, stress incontinence, glaucoma, peripheral vascular disease (bilateral stents in the legs), asthma. Stress test done on 10/01/13 showed normal results. LVEF 76%. Echo done on 10/02/13 showed LVEF 60- 65%. Left ankle X ray negative for fracture, soft tissue swelling. Right knee x ray showed negative for fracture,small suprapatellar effusion, Chest X ray- normal/unremarkable. Troponin normal x 2. EKG showed normal sinus rhythm, no ischemia. Urinalysis WNL. Orthostatic vital signs to rule out orthostatic hypotension. Denies chest pain or shortness of breath. Will order echocardiogram to evaluate LV function. Plan: Awake, alert, complaining of ankle and knee pain NSAID for ankle and knee swelling Heart rate controlled Blood pressure controlled Orthostatic vital signs On Norvasc 10 mg daily, Ecotrin 81 mg daily, Plavix 75 mg daily, Cozaar 100 mg daily Continue current medications Continue current treatment Echo to evaluate LV function Further recommendation during hospital course Will follow up Plan and treatment discussed with Dr. Lucero Thank you Dr. Le for the opportunity of taking care of Nishameghan Cruz - Date & Time Date: 10/17/18 Time: 06:35
--- NOTE | 2018-10-17 09:29 | CP.PCM.PN ---
<Terri Saini - Last Filed: 10/17/18 13:31> Subjective - Date & Time of Evaluation Date of Evaluation: 10/17/18 Time of Evaluation: 09:13 - Subjective Subjective: Terri Saini, PGY-1, Internal Medicine Progress Note for Dr. Sarmiento Patient seen and evaluated at bedside. Patient had no acute overnight events. Patient reports 2 prior episodes of syncope prior to arrival at the hospital with associated episodes of vomiting. Patient did not have an aura prior to either syncopal episode but felt lethargic status post syncopal episodes. Today, patient denies dizziness, chest pain, heart palpitations, shortness of breath, nausea, vomiting. Patient also reports lower extremity pain as well. Objective - Vital Signs/Intake and Output Vital Signs (last 24 hours): Temp Pulse Resp BP Pulse Ox 98.2 F 64 19 132/65 99 10/17/18 06:00 10/17/18 06:00 10/17/18 06:00 10/17/18 06:00 10/16/18 20:42 Intake and Output: 10/17/18 10/17/18 06:59 18:59 Intake Total 0 Output Total 0 Balance 0 - Medications Medications: Current Medications Albuterol/Ipratropium (Duoneb 3 Mg/0.5 Mg (3 Ml) Ud) 3 ml IH Q4H PRN PRN Reason: Shortness of Breath Amlodipine Besylate (Norvasc) 10 mg PO DAILY [facility] Aspirin (Ecotrin) 81 mg PO DAILY [facility] Atorvastatin Calcium (Lipitor) 20 mg PO HS [facility] Last Admin: 10/16/18 23:00 Dose: Not Given Clopidogrel Bisulfate (Plavix) 75 mg PO DAILY [facility] Ferrous Sulfate (Feosol) 324 mg PO DAILY [facility] Heparin Sodium (Porcine) (Heparin) 5,000 units SC Q8 [facility]; Protocol Last Admin: 10/17/18 05:21 Dose: 5,000 units Home Med (Home Med) 1 unit OU BID [facility] Last Admin: 10/16/18 23:35 Dose: 1 unit Ibuprofen (Motrin Tab) 600 mg PO Q6H PRN PRN Reason: Pain, moderate (4-7) Ketorolac Tromethamine (Toradol) 15 mg IVP Q6 PRN PRN Reason: Pain, severe (8-10) Losartan Potassium (Cozaar) 100 mg PO DAILY [facility] Pantoprazole Sodium (Protonix Ec Tab) 40 mg PO 0600 [facility] - Labs Labs: 10/17/18 07:00 10/17/18 07:00 PT 12.3 SECONDS (9.4-12.5) 10/16/18 14:00 INR 1.11 10/16/18 14:00 APTT 29.8 Seconds (26.9-38.3) 10/16/18 14:00 - Constitutional Appears: Well, Non-toxic, No Acute Distress - Head Exam Head Exam: ATRAUMATIC, NORMAL INSPECTION, NORMOCEPHALIC - Eye Exam Eye Exam: EOMI, PERRL - ENT Exam ENT Exam: Mucous Membranes Moist - Neck Exam Neck Exam: Full ROM - Respiratory Exam Respiratory Exam: Clear to Ausculation Bilateral, NORMAL BREATHING PATTERN - Cardiovascular Exam Cardiovascular Exam: REGULAR RHYTHM, RRR, +S1, +S2 - GI/Abdominal Exam GI & Abdominal Exam: Soft, Normal Bowel Sounds. absent: Tenderness - Neurological Exam Neurological Exam: Alert, Awake, CN II-XII Intact, Oriented x3 - Skin Skin Exam: Dry, Intact, Normal Color Assessment and Plan - Assessment and Plan (Free Text) Assessment: 73 year old female with past medical history of hypertension, stress incontinence, glaucoma, PVD, and asthma presents with left ankle pain and right knee pain status post syncopal episode. Plan: Syncope -Patient reports no tongue biting, urinary or fecal incontinence. -Tropx3: unremarkable -EKG: NSR. Will monitor on telemetry for evaluation of arrhythmias. -CT Head: no acute changes -CXR: no acute changes -Will follow up echocardiogram to rule out -Will follow up orthostatic vital signs -Dr. Lucero, Cardiology, on consult -Dr. Bains, Neurology, on consult -Fall precautions -Seizure precautions Left ankle pain and right knee pain -Left ankle and right knee X ray show no evidence of fracture -Continue pain control with ibuprofen for moderate pain and toradol for severe pain -Patient is currently wearing left ankle brace. -Patient has not received any toradol and will be given one dose of toradol stat Hypertension -Continue with norvasc, cozaar PVD with stents -Continue aspirin and plavix Asthma -Duonebs PRN -Asymptomatic at this time GI prophylaxis: protonix 40 mg daily DVT prophylaxis: heparin 5000 U Q8 Patient plan discussed with Dr. Sarmiento <Marcela Sarmiento - Last Filed: 10/17/18 16:09> Objective - Vital Signs/Intake and Output Vital Signs (last 24 hours): Temp Pulse Resp BP Pulse Ox 97.4 F L 71 18 114/65 99 10/17/18 12:00 10/17/18 12:00 10/17/18 12:00 10/17/18 12:00 10/16/18 20:42 Intake and Output: 10/17/18 10/17/18 06:59 18:59 Intake Total 0 Output Total 0 Balance 0 - Medications Medications: Current Medications Albuterol/Ipratropium (Duoneb 3 Mg/0.5 Mg (3 Ml) Ud) 3 ml IH Q4H PRN PRN Reason: Shortness of Breath Amlodipine Besylate (Norvasc) 10 mg PO DAILY [facility] Last Admin: 10/17/18 10:23 Dose: 10 mg Aspirin (Ecotrin) 81 mg PO DAILY [facility] Last Admin: 10/17/18 10:23 Dose: 81 mg Atorvastatin Calcium (Lipitor) 20 mg PO HS [facility] Last Admin: 10/16/18 23:00 Dose: Not Given Clopidogrel Bisulfate (Plavix) 75 mg PO DAILY [facility] Last Admin: 10/17/18 10:23 Dose: 75 mg Ferrous Sulfate (Feosol) 324 mg PO DAILY [facility] Last Admin: 10/17/18 10:22 Dose: 324 mg Heparin Sodium (Porcine) (Heparin) 5,000 units SC Q8 [facility]; Protocol Last Admin: 10/17/18 14:27 Dose: 5,000 units Home Med (Home Med) 1 unit OU BID [facility] Last Admin: 10/17/18 10:23 Dose: 1 unit Ibuprofen (Motrin Tab) 600 mg PO Q6H PRN PRN Reason: Pain, moderate (4-7) Ibuprofen (Motrin Tab) 800 mg PO TID [facility] Stop: 10/18/18 01:00 Last Admin: 10/17/18 14:45 Dose: Not Given Ketorolac Tromethamine (Toradol) 15 mg IVP Q6 PRN PRN Reason: Pain, severe (8-10) Losartan Potassium (Cozaar) 100 mg PO DAILY [facility] Last Admin: 10/17/18 10:23 Dose: 100 mg Pantoprazole Sodium (Protonix Ec Tab) 40 mg PO 0600 [facility] - Labs Labs: 10/17/18 07:00 10/17/18 07:00 PT 12.3 SECONDS (9.4-12.5) 10/16/18 14:00 INR 1.11 10/16/18 14:00 APTT 29.8 Seconds (26.9-38.3) 10/16/18 14:00 Attending/Attestation - Attestation I have personally seen and examined this patient.: Yes I have fully participated in the care of the patient.: Yes I have reviewed all pertinent clinical information, including history, physical exam and plan: Yes Notes (Text): 10/17/18 16:06 Patient was seen and examined with medical technologist microbiology. 73-year-old female with PMH of HTN, , glaucoma, PVD (bilateral stents in the legs), PUD who presented to the ED with left ankle pain and right knee pain Patient has H/O fall from chair 10/14/18 and loss of consciousness for 10 minutues,X rays are negative for fracture, has left ankle strain. There is no focal deficit Telemetry is unremarkable for arrhythmia. Echo results are pending. Patient pain is better, awaiting PT evaluation.
[2018-10-17] MEDS: COMBIGAN EYE OU SCH ×2 (10:23→21:42)
--- NOTE | 2018-10-17 15:18 | CARD ---
APPROVED REPORT Date of service: 10/16/2018 EKG Measurement Heart [id number] <Conclusion> Normal sinus rhythm Normal ECG
[2018-10-18] MEDS: Pantoprazole 40 mg EC Tab PO SCH (06:02)
--- NOTE | 2018-10-18 06:51 | CP.PCM.PN ---
Subjective - Date & Time of Evaluation Date of Evaluation: 10/18/18 Time of Evaluation: 06:25 - Subjective Subjective: Awake, alert, still complaining of left ankle and right knee pain but better Reason for consultation and follow up: Cardiac evaluation of syncopal episode, History of hypertension, stress incontinence, glaucoma, peripheral vascular disease (bilateral stents in the legs), asthma Seen and examined by me and Dr. Lucero Objective - Vital Signs/Intake and Output Vital Signs (last 24 hours): Temp Pulse Resp BP Pulse Ox 97.4 F L 61 18 130/73 100 10/18/18 06:00 10/18/18 06:00 10/18/18 06:00 10/18/18 06:00 10/18/18 06:00 Intake and Output: 10/17/18 10/18/18 18:59 06:59 Intake Total 1580 Balance 1580 - Medications Medications: Current Medications Albuterol/Ipratropium (Duoneb 3 Mg/0.5 Mg (3 Ml) Ud) 3 ml IH Q4H PRN PRN Reason: Shortness of Breath Amlodipine Besylate (Norvasc) 10 mg PO DAILY [facility] Last Admin: 10/17/18 10:23 Dose: 10 mg Aspirin (Ecotrin) 81 mg PO DAILY [facility] Last Admin: 10/17/18 10:23 Dose: 81 mg Atorvastatin Calcium (Lipitor) 20 mg PO HS [facility] Last Admin: 10/17/18 21:38 Dose: 20 mg Clopidogrel Bisulfate (Plavix) 75 mg PO DAILY [facility] Last Admin: 10/17/18 10:23 Dose: 75 mg Ferrous Sulfate (Feosol) 324 mg PO DAILY [facility] Last Admin: 10/17/18 10:22 Dose: 324 mg Heparin Sodium (Porcine) (Heparin) 5,000 units SC Q8 [facility]; Protocol Last Admin: 10/18/18 06:03 Dose: 5,000 units Home Med (Home Med) 1 unit OU BID [facility] Last Admin: 10/17/18 21:42 Dose: 1 unit Ibuprofen (Motrin Tab) 600 mg PO Q6H PRN PRN Reason: Pain, moderate (4-7) Ketorolac Tromethamine (Toradol) 15 mg IVP Q6 PRN PRN Reason: Pain, severe (8-10) Last Admin: 10/17/18 19:25 Dose: 15 mg Losartan Potassium (Cozaar) 100 mg PO DAILY [facility] Last Admin: 10/17/18 10:23 Dose: 100 mg Pantoprazole Sodium (Protonix Ec Tab) 40 mg PO 0600 [facility] Last Admin: 10/18/18 06:02 Dose: 40 mg - Labs Labs: 10/17/18 07:00 10/17/18 07:00 PT 12.3 SECONDS (9.4-12.5) 10/16/18 14:00 INR 1.11 10/16/18 14:00 APTT 29.8 Seconds (26.9-38.3) 10/16/18 14:00 - Constitutional Appears: Non-toxic, No Acute Distress - Head Exam Head Exam: NORMAL INSPECTION, NORMOCEPHALIC - Eye Exam Eye Exam: Normal appearance Pupil Exam: NORMAL ACCOMODATION - ENT Exam ENT Exam: Mucous Membranes Moist - Respiratory Exam Respiratory Exam: Decreased Breath Sounds, Clear to Ausculation Bilateral, NORMAL BREATHING PATTERN - Cardiovascular Exam Cardiovascular Exam: REGULAR RHYTHM, +S1, +S2 - GI/Abdominal Exam GI & Abdominal Exam: Soft, Normal Bowel Sounds - Extremities Exam Additional comments: left ankle swelling right knee swelling - Neurological Exam Neurological Exam: Alert, Awake, Oriented x3 - Psychiatric Exam Psychiatric exam: Normal Affect, Normal Mood - Skin Skin Exam: Dry, Normal Color, Warm Assessment and Plan - Assessment and Plan (Free Text) Assessment: A 73 year old female who came in to the ER due to syncopal episode causing to loose conciousness for few seconds per daughter. Also complaining of left ankle pain and right knee pain post syncopal episode. History of hypertension, stress incontinence, glaucoma, peripheral vascular disease (bilateral stents in the legs), asthma. Stress test done on 10/01/13 showed normal results. LVEF 76%. Echo done on 10/02/13 showed LVEF 60-65%. Left ankle X ray negative for fracture, soft tissue swelling. Right knee x ray showed negative for fracture,small suprapatell ar effusion, Chest X ray- normal/unremarkable. Troponin normal x 2. EKG showed normal sinus rhythm, no ischemia. Urinalysis WNL. Orthostatic vital signs ruled out orthostatic hypotension. Denies chest pain or shortness of breath. Echocardiogram done, pending results. Stress test in Am. NPO after midnight except meds. Plan: For Stress test in AM NPO after midnight except meds Awake, alert, Still complaining of ankle and knee pain but less pain Heart rate controlled Blood pressure controlled Orthostatic vital signs normal Lying BP- 122/71 Sitting BP 114/67 Standing BP-116/67 On Norvasc 10 mg daily, Ecotrin 81 mg daily, Plavix 75 mg daily, Cozaar 100 mg daily Continue current medications Continue current treatment Echo done pending results Will follow up Plan and treatment discussed with Dr. Lucero
[2018-10-18 07:46] LABS: BASO # 0.02 K/mm3 (0.0-2.0); BASO % 0.4 % (0.0-3.0); EOS # 0.1 (0.0-0.7); EOS % 1.2 % (1.5-5.0); HEMOGLOBIN 11.1 g/dL (12.0-16.0); LYMPH # 2.1 (1.2-3.4); LYMPH % 37.5 % (22.0-35.0); MEAN CELL VOLUME 86.8 fl (80.0-105.0); MEAN CORPUSCULAR HEMOGLOBIN 28.2 pg (25.0-35.0); MEAN CORPUSCULAR HGB CONC 32.6 g/dl (31.0-37.0); MEAN PLATELET VOLUME 10.1 fl (7.0-11.0); MONO # 0.7 (0.1-0.6); MONO % 12.9 % (1.0-6.0); RBC 3.93 10^6/uL (3.5-6.1); RED CELL DISTRIBUTION WIDTH 13.5 % (11.5-14.5); WHITE BLOOD COUNT 5.7 10^3/uL (4.5-11.0)
[2018-10-18 08:58] LABS: ALB/GLOB RATIO 1.1 (1.1-1.8); ALBUMIN 3.5 g/dL (3.0-4.8); ALT/SGPT 19 U/L (7-56); AST/SGOT 26 U/L (14-36); BLOOD UREA NITROGEN 23 mg/dL (7-21); CALCIUM 9.7 mg/dL (8.4-10.5); GFR NON-AFRICAN AMERICAN 54
[2018-10-18] MEDS: COMBIGAN EYE OU SCH ×2 (10:03→21:47)
--- NOTE | 2018-10-18 11:05 | CP.PCM.PN ---
<Terri Saini - Last Filed: 10/18/18 10:58> Subjective - Date & Time of Evaluation Date of Evaluation: 10/18/18 Time of Evaluation: 10:58 - Subjective Subjective: Terri Saini, PGY-1, Internal Medicine Progress Note for Dr. Bruce Patient seen and evaluated at bedside. Patient had no acute overnight events. Patient denies dizziness, chest pain, heart palpitations, shortness of breath, nausea, vomiting. Patient continues to report right knee pain, left calf tenderness as well, and weakness. Objective - Vital Signs/Intake and Output Vital Signs (last 24 hours): Temp Pulse Resp BP Pulse Ox 97.4 F L 61 18 132/70 100 10/18/18 06:00 10/18/18 06:00 10/18/18 06:00 10/18/18 10:03 10/18/18 06:00 Intake and Output: 10/18/18 10/18/18 06:59 18:59 Intake Total 1580 Balance 1580 - Medications Medications: Current Medications Albuterol/Ipratropium (Duoneb 3 Mg/0.5 Mg (3 Ml) Ud) 3 ml IH Q4H PRN PRN Reason: Shortness of Breath Amlodipine Besylate (Norvasc) 10 mg PO DAILY [facility] Last Admin: 10/18/18 10:03 Dose: 10 mg Aspirin (Ecotrin) 81 mg PO DAILY [facility] Last Admin: 10/18/18 10:03 Dose: 81 mg Atorvastatin Calcium (Lipitor) 20 mg PO HS [facility] Last Admin: 10/17/18 21:38 Dose: 20 mg Clopidogrel Bisulfate (Plavix) 75 mg PO DAILY [facility] Last Admin: 10/18/18 10:02 Dose: 75 mg Ferrous Sulfate (Feosol) 324 mg PO DAILY [facility] Last Admin: 10/18/18 10:03 Dose: 324 mg Heparin Sodium (Porcine) (Heparin) 5,000 units SC Q8 [facility]; Protocol Last Admin: 10/18/18 06:03 Dose: 5,000 units Home Med (Home Med) 1 unit OU BID [facility] Last Admin: 10/18/18 10:03 Dose: 1 unit Ibuprofen (Motrin Tab) 600 mg PO Q6H PRN PRN Reason: Pain, moderate (4-7) Ketorolac Tromethamine (Toradol) 15 mg IVP Q6 PRN PRN Reason: Pain, severe (8-10) Last Admin: 10/17/18 19:25 Dose: 15 mg Losartan Potassium (Cozaar) 100 mg PO DAILY [facility] Last Admin: 10/18/18 10:03 Dose: 100 mg Pantoprazole Sodium (Protonix Ec Tab) 40 mg PO 0600 [facility] Last Admin: 10/18/18 06:02 Dose: 40 mg - Labs Labs: 10/18/18 07:00 10/18/18 07:00 PT 12.3 SECONDS (9.4-12.5) 10/16/18 14:00 INR 1.11 10/16/18 14:00 APTT 29.8 Seconds (26.9-38.3) 10/16/18 14:00 - Constitutional Appears: Well, Non-toxic, No Acute Distress - Head Exam Head Exam: ATRAUMATIC, NORMAL INSPECTION, NORMOCEPHALIC - Eye Exam Eye Exam: EOMI, PERRL - ENT Exam ENT Exam: Mucous Membranes Moist - Neck Exam Neck Exam: Full ROM - Respiratory Exam Respiratory Exam: Clear to Ausculation Bilateral, NORMAL BREATHING PATTERN - Cardiovascular Exam Cardiovascular Exam: REGULAR RHYTHM, RRR, +S1, +S2 - GI/Abdominal Exam GI & Abdominal Exam: Soft, Normal Bowel Sounds. absent: Tenderness - Neurological Exam Neurological Exam: Alert, Awake, CN II-XII Intact, Oriented x3 - Skin Skin Exam: Dry, Intact, Normal Color Assessment and Plan - Assessment and Plan (Free Text) Assessment: 73 year old female with past medical history of hypertension, stress incontinence, glaucoma, PVD, and asthma presents with left ankle pain and right knee pain status post syncopal episode. Plan: Syncope -Patient reports no tongue biting, urinary or fecal incontinence. -Tropx3: unremarkable -EKG: NSR. Will monitor on telemetry for evaluation of arrhythmias. -CT Head: no acute changes -CXR: no acute changes -Echocardiogram: will follow up results -Orthostatic vital signs: unremarkable -Dr. Lucero, Cardiology, on consult -Dr. Bains, Neurology, on consult -Fall precautions -Seizure precautions Left ankle pain and right knee pain -Left ankle and right knee X ray show no evidence of fracture but ankle X ray shows soft tissue swelling and knee X ray shows small suprapatellar effusion -Continue pain control with ibuprofen for moderate pain and toradol for severe pain Hypercholesterolemia -Increased cholesterol at 242 in 09/2013 -Continue atorvastatin 20 mg daily Hypertension -Continue with norvascdennis PVD with stents -Continue aspirin and plavix Asthma -Duonebs PRN -Asymptomatic at this time GI prophylaxis: protonix 40 mg daily DVT prophylaxis: heparin 5000 U Q8 Disposition: PT has recommended TCU for patient. Patient will have TCU evaluation for further rehabilitation. Patient plan discussed with Dr. Bruce <Rodo Bruce - Last Filed: 10/18/18 13:33> Objective - Vital Signs/Intake and Output Vital Signs (last 24 hours): Temp Pulse Resp BP Pulse Ox 97.5 F L 67 18 110/58 L 100 10/18/18 12:00 10/18/18 12:00 10/18/18 12:00 10/18/18 12:00 10/18/18 06:00 Intake and Output: 10/18/18 10/18/18 06:59 18:59 Intake Total 1580 Balance 1580 - Medications Medications: Current Medications Albuterol/Ipratropium (Duoneb 3 Mg/0.5 Mg (3 Ml) Ud) 3 ml IH Q4H PRN PRN Reason: Shortness of Breath Amlodipine Besylate (Norvasc) 10 mg PO DAILY [facility] Last Admin: 10/18/18 10:03 Dose: 10 mg Aspirin (Ecotrin) 81 mg PO DAILY [facility] Last Admin: 10/18/18 10:03 Dose: 81 mg Atorvastatin Calcium (Lipitor) 20 mg PO HS [facility] Last Admin: 10/17/18 21:38 Dose: 20 mg Clopidogrel Bisulfate (Plavix) 75 mg PO DAILY [facility] Last Admin: 10/18/18 10:02 Dose: 75 mg Ferrous Sulfate (Feosol) 324 mg PO DAILY [facility] Last Admin: 10/18/18 10:03 Dose: 324 mg Heparin Sodium (Porcine) (Heparin) 5,000 units SC Q8 [facility]; Protocol Last Admin: 10/18/18 06:03 Dose: 5,000 units Home Med (Home Med) 1 unit OU BID [facility] Last Admin: 10/18/18 10:03 Dose: 1 unit Ibuprofen (Motrin Tab) 600 mg PO Q6H PRN PRN Reason: Pain, moderate (4-7) Ketorolac Tromethamine (Toradol) 15 mg IVP Q6 PRN PRN Reason: Pain, severe (8-10) Last Admin: 10/17/18 19:25 Dose: 15 mg Losartan Potassium (Cozaar) 100 mg PO DAILY [facility] Last Admin: 10/18/18 10:03 Dose: 100 mg Pantoprazole Sodium (Protonix Ec Tab) 40 mg PO 0600 [facility] Last Admin: 10/18/18 06:02 Dose: 40 mg - Labs Labs: 10/18/18 07:00 10/18/18 07:00 PT 12.3 SECONDS (9.4-12.5) 10/16/18 14:00 INR 1.11 10/16/18 14:00 APTT 29.8 Seconds (26.9-38.3) 10/16/18 14:00 Attending/Attestation - Attestation I have personally seen and examined this patient.: Yes I have fully participated in the care of the patient.: Yes I have reviewed all pertinent clinical information, including history, physical exam and plan: Yes Notes (Text): 10/18/18 13:23 73 year old female with past medical history of hypertension and PVD s/p stents who presented with complaint of fall and loss of consciousness. Xrays were negative for fractures; shows soft tissue sweeling at left ankle. PT evaluation was appreciated who is recommending TCU. Serial cardiac enzymes were negative. Echocardiogram was reviewed. Orthostatics were negative. Cardiology is following who is planning for possible stress test tomorrow. Neurology evaluation is pending. Patient reports she lives alone and may benefit from rehab services upon discharge. Rodo Bruce MD Hospitalist.
--- NOTE | 2018-10-18 12:44 | CARD ---
APPROVED REPORT Date of service: 10/17/2018 EXAM: Two-dimensional and M-mode echocardiogram with Doppler and color Doppler. INDICATION LV Function:SystolicDiastolic Syncope 2D DIMENSIONS Left Atrium (2D)4.0 (1.6-4.0cm)IVSd1.0 (0.7-1.1cm) LVDd3.7 (3.9-5.9cm)PWd1.1 (0.7-1.1cm) LVDs2.3 (2.5-4.0cm)FS (%) 38.0 % LVEF (%)69.1 (>50%) M-Mode DIMENSIONS Aortic Root2.80 (2.2-3.7cm)Aortic Cusp Exc.1.70 (1.5-2.0cm) Aortic Valve AoV Peak Bvmtqurf630.0cm/Janette Peak GR.10mmHg Mitral Valve MV E Tpkmleut75.4cm/sMV A Vbiddohn63.5cm/sE/A ratio0.8 TDI Lateral E' Peak V7.02cm/sMedial E' Peak V6.24cm/sE/Lateral E'10.5 E/Medial E'11.8 Pulmonary Valve PV Peak Uffyoygt12.3cm/sPV Peak Grad.4mmHg Tricuspid Valve TR Peak [id number]/sRAP [id number] Peak Gr.33mmHg [id number] LEFT VENTRICLE The left ventricle is normal size. The left ventricular function is normal. The left ventricular ejection fraction is within the normal range. Ej.Fr: 69%. Tissue Doppler imaging reveals moderate left ventricular diastolic dysfunction. RIGHT VENTRICLE The right ventricle is normal size. The right ventricular systolic function is normal. ATRIA Lt. Atrium Size Upper Limit of Normal. The right atrium size is normal. AORTIC VALVE AZortic Valve Leaflets Thickened due to Calcification but Opening Normal. MITRAL VALVE The mitral valve is normal in structure. Mitral Annulus Calcifed. TRICUSPID VALVE The tricuspid valve is normal in structure. There is mild tricuspid regurgitation. RVSP: 43mm Hg. Mild Pulmonary Hypertension. PULMONIC VALVE Pulmonic Valve shows Trace Regurgitation. PERICARDIAL EFFUSION There is no pericardial effusion. <Conclusion> The left ventricle is normal size.LV Systolic Function [place];. LV Ej.Fr: 69%. Tissue Doppler imaging reveals moderate left ventricular diastolic dysfunction. The right ventricle is normal size. The right ventricular systolic function is normal. Lt. Atrium Size Upper Limit of Normal. The right atrium size is normal. Aortic Valve Leaflets Thickened due to Calcification but Opening Normal. The mitral valve is normal in structure. Mitral Annulus Calcifed. The tricuspid valve is normal in structure. There is mild tricuspid regurgitation. RVSP: 43mm Hg. Mild Pulmonary Hypertension. Pulmonic Valve shows Trace Regurgitation. There is no pericardial effusion.
--- NOTE | 2018-10-18 13:38 | CP.PCM.CON ---
History of Present Illness - History of Present Illness History of Present Illness: Neurology consult dictated. Miss Cruz has syncope where she lost consciousness briefly but had no focal symptoms. A/p: 1. CTA head and neck. Our team will follow Dr. lopez Neurology Past Patient History - Infectious Disease Hx of Infectious Diseases: None - Past Social History Smoking Status: Never Smoked - CARDIAC Hx Cardiac Disorders: Yes Hx Hypercholesterolemia: Yes Hx Hypertension: Yes - PULMONARY Hx Respiratory Disorders: Yes Hx Asthma: Yes Other/Comment: sx to remove lung mass years ago benign - NEUROLOGICAL Hx Neurological Disorder: Yes (pinched nerve left foot) - HEENT Hx HEENT Problems: Yes (WEARS RX GLASSES) Hx Glaucoma: Yes - RENAL Hx Chronic Kidney Disease: No - ENDOCRINE/METABOLIC Hx Endocrine Disorders: No - HEMATOLOGICAL/ONCOLOGICAL Hx Blood Disorders: No - INTEGUMENTARY Hx Dermatological Problems: No Other/Comment: right swelling bruising pain & left ankle swelling bruising pain from syncopal episode last night, dry skin to both feet - MUSCULOSKELETAL/RHEUMATOLOGICAL Hx Falls: Yes (passed out and fell 10/15/18) - GASTROINTESTINAL Hx Gastrointestinal Disorders: Yes (HERNIORHAPPHY) - GENITOURINARY/GYNECOLOGICAL Hx Genitourinary Disorders: Yes (3 CAESEREAN SECTIONS,ONE STILL ,,RIGHT BREAST REMOVAL OF SCAR TISSUE,) Hx Incontinence: Yes (leaking & stress incontinence) Other/Comment: TUBAL LIGATION - PSYCHIATRIC Hx Substance Use: No - SURGICAL HISTORY Hx Surgeries: Yes (BILATERAL FOOT SURGERY FROM FALL,TUBAL LIGATION,3 C/S,LUNG SURGERY,HAMMERTO) Other/Comment: surgical removal of scar tissue from right breast due to an injury, hammertoes with sx x 2 - ANESTHESIA Hx Anesthesia: Yes Hx Anesthesia Reactions: No Hx Malignant Hyperthermia: No Meds Allergies/Adverse Reactions: Allergies Allergy/AdvReac Type Severity Reaction Status Date / Time acetaminophen [From Percocet] Allergy VOMITING Verified 10/16/18 12:35 codeine Allergy SHORTNESS Verified 10/16/18 12:35 OF BREATH oxycodone [From Percocet] Allergy VOMITING Verified 10/16/18 12:35 - Medications Medications: Current Medications Albuterol/Ipratropium (Duoneb 3 Mg/0.5 Mg (3 Ml) Ud) 3 ml IH Q4H PRN PRN Reason: Shortness of Breath Amlodipine Besylate (Norvasc) 10 mg PO DAILY [facility] Last Admin: 10/18/18 10:03 Dose: 10 mg Aspirin (Ecotrin) 81 mg PO DAILY [facility] Last Admin: 10/18/18 10:03 Dose: 81 mg Atorvastatin Calcium (Lipitor) 20 mg PO HS [facility] Last Admin: 10/17/18 21:38 Dose: 20 mg Clopidogrel Bisulfate (Plavix) 75 mg PO DAILY [facility] Last Admin: 10/18/18 10:02 Dose: 75 mg Ferrous Sulfate (Feosol) 324 mg PO DAILY [facility] Last Admin: 10/18/18 10:03 Dose: 324 mg Heparin Sodium (Porcine) (Heparin) 5,000 units SC Q8 [facility]; Protocol Last Admin: 10/18/18 06:03 Dose: 5,000 units Home Med (Home Med) 1 unit OU BID [facility] Last Admin: 10/18/18 10:03 Dose: 1 unit Ibuprofen (Motrin Tab) 600 mg PO Q6H PRN PRN Reason: Pain, moderate (4-7) Ketorolac Tromethamine (Toradol) 15 mg IVP Q6 PRN PRN Reason: Pain, severe (8-10) Last Admin: 10/17/18 19:25 Dose: 15 mg Losartan Potassium (Cozaar) 100 mg PO DAILY [facility] Last Admin: 10/18/18 10:03 Dose: 100 mg Pantoprazole Sodium (Protonix Ec Tab) 40 mg PO 0600 [facility] Last Admin: 10/18/18 06:02 Dose: 40 mg Results - Vital Signs Recent Vital Signs: Last Vital Signs Temp 97.5 F L 10/18/18 12:00 Pulse 67 10/18/18 12:00 Resp 18 10/18/18 12:00 BP 110/58 L 10/18/18 12:00 Pulse Ox 100 10/18/18 06:00 - Labs Result Diagrams: 10/18/18 07:00 10/18/18 07:00 Labs: Laboratory Results - last 24 hr 10/18/18 10/18/18 07:00 07:00 WBC 5.7 RBC 3.93 Hgb 11.1 L Hct 34.1 L MCV 86.8 MCH 28.2 MCHC 32.6 RDW 13.5 Plt Count 282 MPV 10.1 Neut % (Auto) 48.0 L Lymph % (Auto) 37.5 H [place] % (Auto) 12.9 H Eos % (Auto) 1.2 L Baso % (Auto) 0.4 Lymph # (Auto) 2.1 [place] # (Auto) 0.7 H Eos # (Auto) 0.1 Baso # (Auto) 0.02 Absolute Neuts (auto) 2.72 Sodium 140 Potassium 4.4 Chloride 106 Carbon Dioxide 24 Anion Gap 15 BUN 23 H Creatinine 1.0 Est GFR ( Amer) > 60 Est GFR (Non-Af Amer) 54 Random Glucose 84 Calcium 9.7 Total Bilirubin 0.4 AST 26 ALT 19 Alkaline Phosphatase 72 Total Protein 6.7 Albumin 3.5 Globulin 3.1 Albumin/Globulin Ratio 1.1
[2018-10-19] MEDS: Pantoprazole 40 mg EC Tab PO SCH (05:00)
[2018-10-19 07:13] LABS: ALBUMIN 3.4 g/dL (3.0-4.8); CALCIUM 9.2 mg/dL (8.4-10.5)
[2018-10-19 07:14] LABS: BASO # 0.02 K/mm3 (0.0-2.0); BASO % 0.4 % (0.0-3.0); EOS # 0.1 (0.0-0.7); EOS % 1.4 % (1.5-5.0); HEMOGLOBIN 10.8 g/dL (12.0-16.0); LYMPH # 1.9 (1.2-3.4); LYMPH % 37.5 % (22.0-35.0); MEAN CELL VOLUME 87.3 fl (80.0-105.0); MEAN CORPUSCULAR HEMOGLOBIN 27.9 pg (25.0-35.0); MEAN PLATELET VOLUME 10.6 fl (7.0-11.0); MONO # 0.6 (0.1-0.6); MONO % 11.3 % (1.0-6.0); RBC 3.87 10^6/uL (3.5-6.1); RED CELL DISTRIBUTION WIDTH 13.7 % (11.5-14.5); WHITE BLOOD COUNT 5.1 10^3/uL (4.5-11.0)
[2018-10-19] MEDS ORDERED: Iohexol 350 MG/100 ML VIAL ONE (08:47)
[2018-10-19] MEDS ORDERED: Sodium Chloride 0.9% 1,000 ML IV SCH (10:15)
--- NOTE | 2018-10-19 11:52 | CP.PCM.PN ---
<Isiah Euceda - Last Filed: 10/19/18 11:45> Subjective - Date & Time of Evaluation Date of Evaluation: 10/19/18 Time of Evaluation: 07:15 - Subjective Subjective: Isiah Euceda PGY-1 Progress Note for Hospitalist Service Patient seen and evaluated at bedside. Patient had no acute events reported overnight. Patient denies dizziness, chest pain, heart palpitations, shortness of breath, nausea, vomiting. Patient continues to report right knee pain and left ankle tenderness as well. Objective - Vital Signs/Intake and Output Vital Signs (last 24 hours): Temp Pulse Resp BP Pulse Ox 97.5 F L 82 20 135/62 99 10/19/18 06:00 10/19/18 09:15 10/19/18 09:15 10/19/18 09:15 10/19/18 09:15 Intake and Output: 10/19/18 10/19/18 06:59 18:59 Intake Total 900 Balance 900 - Medications Medications: Current Medications Albuterol/Ipratropium (Duoneb 3 Mg/0.5 Mg (3 Ml) Ud) 3 ml IH Q4H PRN PRN Reason: Shortness of Breath Amlodipine Besylate (Norvasc) 10 mg PO DAILY [facility] Last Admin: 10/18/18 10:03 Dose: 10 mg Aspirin (Ecotrin) 81 mg PO DAILY [facility] Last Admin: 10/18/18 10:03 Dose: 81 mg Atorvastatin Calcium (Lipitor) 20 mg PO HS [facility] Last Admin: 10/18/18 21:46 Dose: 20 mg Clopidogrel Bisulfate (Plavix) 75 mg PO DAILY [facility] Last Admin: 10/18/18 10:02 Dose: 75 mg Ferrous Sulfate (Feosol) 324 mg PO DAILY [facility] Last Admin: 10/18/18 10:03 Dose: 324 mg Heparin Sodium (Porcine) (Heparin) 5,000 units SC Q8 [facility]; Protocol Last Admin: 10/19/18 05:00 Dose: 5,000 units Home Med (Home Med) 1 unit OU BID [facility] Last Admin: 10/18/18 21:47 Dose: 1 unit Sodium Chloride (Sodium Chloride 0.9%) 1,000 mls @ 75 mls/hr IV .[id number] [facility] Stop: 10/19/18 23:34 Ibuprofen (Motrin Tab) 600 mg PO Q6H PRN PRN Reason: Pain, moderate (4-7) Ketorolac Tromethamine (Toradol) 15 mg IVP Q6 PRN PRN Reason: Pain, severe (8-10) Last Admin: 10/18/18 19:46 Dose: 15 mg Losartan Potassium (Cozaar) 100 mg PO DAILY [facility] Last Admin: 10/18/18 10:03 Dose: 100 mg Pantoprazole Sodium (Protonix Ec Tab) 40 mg PO 0600 [facility] Last Admin: 10/19/18 05:00 Dose: 40 mg - Labs Labs: 10/19/18 06:30 10/19/18 06:30 PT 12.3 SECONDS (9.4-12.5) 10/16/18 14:00 INR 1.11 10/16/18 14:00 APTT 29.8 Seconds (26.9-38.3) 10/16/18 14:00 - Additional Findings Additional findings: - Constitutional Appears: Well, Non-toxic, No Acute Distress - Head Exam Head Exam: ATRAUMATIC, NORMAL INSPECTION, NORMOCEPHALIC - Eye Exam Eye Exam: EOMI, PERRL - ENT Exam ENT Exam: Mucous Membranes Moist - Neck Exam Neck Exam: Full ROM - Respiratory Exam Respiratory Exam: Clear to Ausculation Bilateral, NORMAL BREATHING PATTERN - Cardiovascular Exam Cardiovascular Exam: REGULAR RHYTHM, RRR, +S1, +S2 - GI/Abdominal Exam GI & Abdominal Exam: Soft, Normal Bowel Sounds. absent: Tenderness - Neurological Exam Neurological Exam: Alert, Awake, CN II-XII Intact, Oriented x3 - Skin Skin Exam: Dry, Intact, Normal Color Assessment and Plan - Assessment and Plan (Free Text) Assessment: 73 year old female with past medical history of hypertension, stress incontinence, glaucoma, PVD, and asthma presents with left ankle pain and right knee pain status post syncopal episode. Plan: Syncope -Patient reports no tongue biting, urinary or fecal incontinence. -Tropx3: unremarkable -EKG: NSR. Continue to monitor on telemetry for evaluation of arrhythmias. -CT Head: no acute changes -CXR: no acute changes -Echocardiogram: EF 69%, moderate LV diastolic dysfunction, mild pulm HTN. -Orthostatic vital signs: unremarkable -Dr. Lucero, Cardiology, on consult. F/U stress test results -Dr. Bains, Neurology, on consult. F/U CTA head/neck results -Fall precautions -Seizure precautions Acute Kidney Injury -Cr slowly increasing, 1.1 today -gentle hydration at 75 cc/hr, one bag. Left ankle pain and right knee pain -Left ankle and right knee X ray show no evidence of fracture but ankle X ray shows soft tissue swelling and knee X ray shows small suprapatellar effusion -Continue pain control with ibuprofen for moderate pain and toradol for severe pain -Physical Therapy recs Hypercholesterolemia -Increased cholesterol at 242 in 09/2013 -Continue atorvastatin 20 mg daily Hypertension -Continue with norvasc cozaar PVD with stents -Continue aspirin and plavix Asthma -Duonebs PRN -Asymptomatic at this time GI prophylaxis: protonix 40 mg daily DVT prophylaxis: heparin 5000 U Q8 Disposition: PT has recommended TCU for patient. Patient will have TCU evaluation for further rehabilitation. Patient seen, case reviewed and plan approved by Dr. Bruce. Isiah Euceda, PGY-1 <Rodo Bruce - Last Filed: 10/19/18 12:19> Objective - Vital Signs/Intake and Output Vital Signs (last 24 hours): Temp Pulse Resp BP Pulse Ox 97.5 F L 82 20 135/62 99 10/19/18 06:00 10/19/18 09:15 10/19/18 09:15 10/19/18 09:15 10/19/18 09:15 Intake and Output: 10/19/18 10/19/18 06:59 18:59 Intake Total 900 Balance 900 - Medications Medications: Current Medications Albuterol/Ipratropium (Duoneb 3 Mg/0.5 Mg (3 Ml) Ud) 3 ml IH Q4H PRN PRN Reason: Shortness of Breath Amlodipine Besylate (Norvasc) 10 mg PO DAILY [facility] Last Admin: 10/18/18 10:03 Dose: 10 mg Aspirin (Ecotrin) 81 mg PO DAILY [facility] Last Admin: 10/18/18 10:03 Dose: 81 mg Atorvastatin Calcium (Lipitor) 20 mg PO HS [facility] Last Admin: 10/18/18 21:46 Dose: 20 mg Clopidogrel Bisulfate (Plavix) 75 mg PO DAILY [facility] Last Admin: 10/18/18 10:02 Dose: 75 mg Ferrous Sulfate (Feosol) 324 mg PO DAILY [facility] Last Admin: 10/18/18 10:03 Dose: 324 mg Heparin Sodium (Porcine) (Heparin) 5,000 units SC Q8 [facility]; Protocol Last Admin: 10/19/18 05:00 Dose: 5,000 units Home Med (Home Med) 1 unit OU BID [facility] Last Admin: 10/18/18 21:47 Dose: 1 unit Sodium Chloride (Sodium Chloride 0.9%) 1,000 mls @ 75 mls/hr IV .[id number] [facility] Stop: 10/19/18 23:34 Ibuprofen (Motrin Tab) 600 mg PO Q6H PRN PRN Reason: Pain, moderate (4-7) Ketorolac Tromethamine (Toradol) 15 mg IVP Q6 PRN PRN Reason: Pain, severe (8-10) Last Admin: 10/18/18 19:46 Dose: 15 mg Losartan Potassium (Cozaar) 100 mg PO DAILY [facility] Last Admin: 10/18/18 10:03 Dose: 100 mg Pantoprazole Sodium (Protonix Ec Tab) 40 mg PO 0600 [facility] Last Admin: 10/19/18 05:00 Dose: 40 mg - Labs Labs: 10/19/18 06:30 10/19/18 06:30 PT 12.3 SECONDS (9.4-12.5) 10/16/18 14:00 INR 1.11 10/16/18 14:00 APTT 29.8 Seconds (26.9-38.3) 10/16/18 14:00 Attending/Attestation - Attestation I have personally seen and examined this patient.: Yes I have fully participated in the care of the patient.: Yes I have reviewed all pertinent clinical information, including history, physical exam and plan: Yes Notes (Text): 10/19/18 12:10 73 year old female with past medical history of hypertension and PVD s/p stents who presented with complaint of fall and loss of consciousness. CT head was negative for acute findings. Xrays were negative for fractures; shows soft tissue swelling at left ankle. Serial cardiac enzymes were negative. Echocardiogram was reviewed. Orthostatics were negative. Cardiology is following who is planning for possible stress test today. Neurology evaluation was appreciated as well who requested CTA. Agree with gentle hydration for mild renal insufficiency. Patient reports she lives alone and may benefit from rehab services upon discharge. PT evaluation was appreciated who is recommending TCU. Will follow up with CMx/Sw. Rodo Brcue MD Hospitalist.
--- NOTE | 2018-10-19 12:24 | PN ---
DATE: 10/19/2018 REASON FOR CONSULTATION AND FOLLOWUP: Cardiac evaluation for syncopal episode, history of hypertension, hyperlipidemia, n.p.o. for stress test today, history of COPD, status post bilateral lower extremity and stent. SUBJECTIVE: The patient denies chest pain, shortness of breath or any palpitation. OBJECTIVE: GENERAL: Not in apparent distress. VITAL SIGNS: Temperature afebrile, heart rate 82, blood pressure 135/62, orthostatic blood pressure was Lying 128/75, sitting 120/69, standing 122/73, no evidence of orthostatic hypotension. Stress examination as follows; temperature afebrile, heart rate 76, blood pressure 128/86, no orthostatic change. HEENT: PERRLA. Extraocular muscles intact. NECK: Supple. No carotid bruit or thyromegaly. CHEST: Clear to auscultation. HEART: S1 and S2 regular. ABDOMEN: Soft. EXTREMITIES: Clubbing and cyanosis negative. LABORATORY DATA: Blood workup as follows; WBC 5.1, hemoglobin 10.8, hematocrit 33.8 and platelet count 298. Chemistry shows sodium 140, potassium 4, chloride 106, carbon dioxide 29, anion gap of 11, BUN 20 and creatinine 1.1. IMPRESSION: A 73-year-old female with past medical history significant for syncopal episode admitted here. So far, no evidence of orthostatic hypotension. Last stress on 10/01/2013 shows normal result ejection fraction of 76%, so far troponin remains negative, orthostatic hypotension negative. The patient had repeat echocardiography done yesterday 10/17/2018 that showed right ventricle systolic function normal, left atrium upper size normal, aortic valve leaflet thickened due to calcification, but movemen twas normal. Ejection fraction of 69%. RECOMMENDATIONS: The patient n.p.o. for the stress. Further recommendation after the stress. We will follow with you. Thank you for providing us the opportunity in taking care of the patient, iNsha Cruz. Marcela Ruvalcaba MD [facility]
[2018-10-19] MEDS: COMBIGAN EYE OU SCH (12:29)
--- NOTE | 2018-10-19 14:39 | CP.PCM.APN ---
Subjective - Date & Time of Evaluation Date of Evaluation: 10/19/18 Time of Evaluation: 11:55 - Subjective Subjective: pt off floor to ct head and stress test per staff Review of Systems - EENT Eyes: As Per HPI Objective - Vital Signs/Intake and Output Vital Signs (last 24 hours): Temp Pulse Resp BP Pulse Ox 97.5 F L 66 20 135/62 99 10/19/18 06:00 10/19/18 10:00 10/19/18 09:15 10/19/18 12:24 10/19/18 09:15 Intake and Output: 10/19/18 10/19/18 06:59 18:59 Intake Total 900 Balance 900 - Medications Medications: Current Medications Albuterol/Ipratropium (Duoneb 3 Mg/0.5 Mg (3 Ml) Ud) 3 ml IH Q4H PRN PRN Reason: Shortness of Breath Amlodipine Besylate (Norvasc) 10 mg PO DAILY [facility] Last Admin: 10/19/18 12:24 Dose: 10 mg Aspirin (Ecotrin) 81 mg PO DAILY [facility] Last Admin: 10/19/18 12:23 Dose: 81 mg Atorvastatin Calcium (Lipitor) 20 mg PO HS [facility] Last Admin: 10/18/18 21:46 Dose: 20 mg Clopidogrel Bisulfate (Plavix) 75 mg PO DAILY [facility] Last Admin: 10/19/18 12:24 Dose: 75 mg Ferrous Sulfate (Feosol) 324 mg PO DAILY [facility] Last Admin: 10/19/18 12:23 Dose: 324 mg Heparin Sodium (Porcine) (Heparin) 5,000 units SC Q8 [facility]; Protocol Last Admin: 10/19/18 05:00 Dose: 5,000 units Home Med (Home Med) 1 unit OU BID [facility] Last Admin: 10/19/18 12:29 Dose: 1 unit Sodium Chloride (Sodium Chloride 0.9%) 1,000 mls @ 75 mls/hr IV .[id number] [facility] Stop: 10/19/18 23:34 Last Admin: 10/19/18 12:24 Dose: Not Given Ibuprofen (Motrin Tab) 600 mg PO Q6H PRN PRN Reason: Pain, moderate (4-7) Ketorolac Tromethamine (Toradol) 15 mg IVP Q6 PRN PRN Reason: Pain, severe (8-10) Last Admin: 10/18/18 19:46 Dose: 15 mg Losartan Potassium (Cozaar) 100 mg PO DAILY [facility] Last Admin: 10/19/18 12:23 Dose: 100 mg Pantoprazole Sodium (Protonix Ec Tab) 40 mg PO 0600 [facility] Last Admin: 10/19/18 05:00 Dose: 40 mg - Labs Labs: 10/19/18 06:30 10/19/18 06:30 PT 12.3 SECONDS (9.4-12.5) 10/16/18 14:00 INR 1.11 10/16/18 14:00 APTT 29.8 Seconds (26.9-38.3) 10/16/18 14:00 Assessment and Plan - Assessment and Plan (Free Text) Plan: ITS Impressions Head CT 10/16/18 13:30 IMPRESSION: Nonspecific white matter changes. Please note that MRI with diffusion imaging is more sensitive in the detection of acute ischemic event. Ankle X-Ray 10/16/18 13:31 IMPRESSION: Mild soft tissue swelling. No acute displaced fracture or dislocation identified. If high clinical index of suspicion for occult fracture, suggest cross-sectional imaging. Chest X-Ray 10/16/18 13:31 IMPRESSION: No focal consolidation. Knee X-Ray 10/16/18 13:31 IMPRESSION: Small suprapatellar effusion. No acute displaced fracture or dislocation identified. If symptoms persist, or if there is continued clinical concern, x-ray follow-up in 7-10 days should be considered. 73 yr old female with pmh sig for htn, glaucoma and pvd who was admitted for c/o pain to right knee and left ankle s/p syncopal episode . pt is now undergoing cardiology and neurology eval with plans for ct head/neck and stress testing today will follow clinical course, pt xray results noted. tcu eval noted, will review p.t recs and discuss with IDT Fadumo Virgen BPCI/TIC - BPCIA/TIC Educated pt/family on BPCIA/CIR/Med to Bed Programs: N/A Flyers given, including [facility] Beneficiary letter: N/A Pt/family verbalized understanding & agreed to program: N/A
--- NOTE | 2018-10-19 17:00 | CP.PCM.DIS ---
<Isiah Euceda - Last Filed: 10/19/18 17:00> Provider - Provider Date of Admission: 10/18/18 12:19 Attending physician: Rodo Bruce MD Primary care physician: David Darby MD Consults: 10/16/18 18:06 Physician Consult Routine Comment: Consulting Provider: Marcela Lucero Consulting Physician: Marcela Lucero Reason for Consult: syncope; stents in Lower Ext 10/16/18 21:19 Social Work Referral Routine Comment: d/c plan Physician Instructions: Reason For Exam: assess 10/17/18 08:51 Neurology Consult Routine Comment: Consulting Provider: Martina Bains Consulting Physician: Martina Bains Reason for Consult: loss of consciousness for 10 minutes 10/18/18 11:02 TCU [Evaluation for TRCU] Routine Comment: Physician Instructions: Reason For Exam: bilateral lower extremity pain status post syncope Time Spent in preparation of Discharge (in minutes): 40 Hospital Course - Lab Results Lab Results: Most Recent Lab Values WBC 5.1 10^3/uL (4.5-11.0) 10/19/18 06:30 RBC 3.87 10^6/uL (3.5-6.1) 10/19/18 06:30 Hgb 10.8 g/dL (12.0-16.0) L 10/19/18 06:30 Hct 33.8 % (36.0-48.0) L 10/19/18 06:30 MCV 87.3 fl (80.0-105.0) 10/19/18 06:30 MCH 27.9 pg (25.0-35.0) 10/19/18 06:30 MCHC 32.0 g/dl (31.0-37.0) 10/19/18 06:30 RDW 13.7 % (11.5-14.5) 10/19/18 06:30 Plt Count 298 10^3/uL (120.0-450.0) 10/19/18 06:30 MPV 10.6 fl (7.0-11.0) 10/19/18 06:30 Neut % (Auto) 49.4 % (50.0-68.0) L 10/19/18 06:30 Lymph % (Auto) 37.5 % (22.0-35.0) H 10/19/18 06:30 [place] % (Auto) 11.3 % (1.0-6.0) H 10/19/18 06:30 Eos % (Auto) 1.4 % (1.5-5.0) L 10/19/18 06:30 Baso % (Auto) 0.4 % (0.0-3.0) 10/19/18 06:30 Lymph # (Auto) 1.9 (1.2-3.4) 10/19/18 06:30 [place] # (Auto) 0.6 (0.1-0.6) 10/19/18 06:30 Eos # (Auto) 0.1 (0.0-0.7) 10/19/18 06:30 Baso # (Auto) 0.02 K/mm3 (0.0-2.0) 10/19/18 06:30 Absolute Neuts (auto) 2.54 (1.4-6.5) 10/19/18 06:30 PT 12.3 SECONDS (9.4-12.5) 10/16/18 14:00 INR 1.11 10/16/18 14:00 APTT 29.8 Seconds (26.9-38.3) 10/16/18 14:00 Sodium 142 mmol/L (132-148) 10/19/18 06:30 Potassium 4.0 mmol/L (3.6-5.0) 10/19/18 06:30 Chloride 106 mmol/L (98-107) 10/19/18 06:30 Carbon Dioxide 29 mmol/L (21-33) 10/19/18 06:30 Anion Gap 11 (10-20) 10/19/18 06:30 BUN 23 mg/dL (7-21) H 10/19/18 06:30 Creatinine 1.1 mg/dl (0.7-1.2) 10/19/18 06:30 Est GFR ( Amer) 59 10/19/18 06:30 Est GFR (Non-Af Amer) 49 10/19/18 06:30 Random Glucose 86 mg/dL (70-110) 10/19/18 06:30 Calcium 9.2 mg/dL (8.4-10.5) 10/19/18 06:30 Phosphorus 4.0 mg/dL (2.5-4.5) 10/17/18 07:00 Magnesium 1.8 mg/dL (1.7-2.2) 10/17/18 07:00 Total Bilirubin 0.2 mg/dL (0.2-1.3) 10/19/18 06:30 AST 31 U/L (14-36) 10/19/18 06:30 ALT 14 U/L (7-56) 10/19/18 06:30 Alkaline Phosphatase 68 U/L (38-126) 10/19/18 06:30 Lactate Dehydrogenase 575 U/L (333-699) 10/16/18 14:00 Total Creatine Kinase 96 U/L (35-230) 10/16/18 14:00 Troponin I < 0.01 ng/mL 10/17/18 01:00 NT-Pro-B Natriuret Pep 535 pg/mL (0-450) H 10/16/18 14:00 Total Protein 6.7 g/dL (5.8-8.3) 10/19/18 06:30 Albumin 3.4 g/dL (3.0-4.8) 10/19/18 06:30 Globulin 3.3 gm/dL 10/19/18 06:30 Albumin/Globulin Ratio 1.0 (1.1-1.8) L 10/19/18 06:30 Lipase 272 U/L (23-300) 10/16/18 14:00 Urine Color Straw (YELLOW) 10/16/18 14:00 Urine Appearance Clear (CLEAR) 10/16/18 14:00 Urine pH 6.5 (4.7-8.0) 10/16/18 14:00 Ur Specific [place] <= 1.005 (1.005-1.035) 10/16/18 14:00 Urine Protein Negative mg/dL (<30 mg/dL) 10/16/18 14:00 Urine Glucose (UA) Negative mg/dL (NEGATIVE) 10/16/18 14:00 Urine Ketones Negative mg/dL (NEGATIVE) 10/16/18 14:00 Urine Blood Negative (NEGATIVE) 10/16/18 14:00 Urine Nitrate Negative (NEGATIVE) 10/16/18 14:00 Urine Bilirubin Negative (NEGATIVE) 10/16/18 14:00 Urine Urobilinogen 0.2 E.U./dL (<1 E.U./dL) 10/16/18 14:00 Ur Leukocyte Esterase Negative Zachariah/uL (NEGATIVE) 10/16/18 14:00 - Hospital Course Hospital Course: Isiah Euceda, PGY-1 Discharge Summary for Hospitalist Service 73 year old female with past medical history of hypertension, stress incontinence, glaucoma, PVD, and asthma who presented with left ankle pain and right knee pain status post syncopal episode. UA was negative. CT head on admi ssion was negative for acute findings. Xrays of L ankle and R knee were negative for fractures, although they did show soft tissue swelling at left ankle and R knee. Serial cardiac enzymes were negative. Echocardiogram showed moderate LV diastolic dysfunction and EF 69%. Orthostatics were found to be negative. Cardiology was consulted - Dr. Lucero - who recommended exercise stress test, which was performed earlier on day of discharge. Final results are pending, but per partner Dr. Ruvalcaba, it is safe to send patient home and to follow up outpatient with results and further evaluation. Neurology was consulted - Dr. Bains, who recommended CTA head and neck to further evaluate syncopal episode. Patient refused. Carotid dopplers was then offered as an alternative, which patient subsequently refused as well. Gentle hydration was provided for mild renal insufficiency. Physical Therapy was consulted and initially recommended TCU evaluation, but after improved ambulation and gait, further recommendations were made for home with services. Patient was in agreement. Case management assisted with setting services up as well. Patient was told to follow up with neurologist, brush clearer surveying and primary doctor upon discharge. Patient is stable and agreeable to discharge. All questions and instructions for importance of followup were discussed with patient and family member at bedside in detail. For further details of hospital course, please see EMR. Patient seen, case reviewed and plan approved by Dr. Bruce. Isiah Euceda, PGY-1 Discharge Exam - Additional Findings Additional findings: - Constitutional Appears: Well, Non-toxic, No Acute Distress - Head Exam Head Exam: ATRAUMATIC, NORMAL INSPECTION, NORMOCEPHALIC - Eye Exam Eye Exam: EOMI, PERRL - ENT Exam ENT Exam: Mucous Membranes Moist - Neck Exam Neck Exam: Full ROM - Respiratory Exam Respiratory Exam: Clear to Ausculation Bilateral, NORMAL BREATHING PATTERN - Cardiovascular Exam Cardiovascular Exam: REGULAR RHYTHM, RRR, +S1, +S2 - GI/Abdominal Exam GI & Abdominal Exam: Soft, Normal Bowel Sounds. absent: Tenderness - Neurological Exam Neurological Exam: Alert, Awake, CN II-XII Intact, Oriented x3 - Skin Skin Exam: Dry, Intact, Normal Color Discharge Plan - Follow Up Plan Condition: FAIR Disposition: HOME/ ROUTINE Instructions: Syncope (DC) Additional Instructions: Please follow up with Primary care doctor, Dr. Darby within 3-5 days Please follow up with brush clearer surveying, Dr. Ruvalcaba for stress test within one week. Please follow up with neurologist Dr. Bains for outpatient follow up. Please resume all home medications. If new or worsening symptoms begin, please visit nearest Emergency department. Referrals: Marcela Ruvalcaba MD [Staff Provider] - David Darby MD [Primary Care Provider] - <Rodo Bruce - Last Filed: 10/19/18 17:34> Provider - Provider Date of Admission: 10/18/18 12:19 Attending physician: Rodo Bruce MD Primary care physician: David Darby MD Consults: 10/16/18 18:06 Physician Consult Routine Comment: Consulting Provider: Marcela Lucero Consulting Physician: Marcela Lucero Reason for Consult: syncope; stents in Lower Ext 10/16/18 21:19 Social Work Referral Routine Comment: d/c plan Physician Instructions: Reason For Exam: assess 10/17/18 08:51 Neurology Consult Routine Comment: Consulting Provider: Martina Bains Consulting Physician: Martian Bains Reason for Consult: loss of consciousness for 10 minutes 10/18/18 11:02 TCU [Evaluation for TRCU] Routine Comment: Physician Instructions: Reason For Exam: bilateral lower extremity pain status post syncope Hospital Course - Lab Results Lab Results: Most Recent Lab Values WBC 5.1 10^3/uL (4.5-11.0) 10/19/18 06:30 RBC 3.87 10^6/uL (3.5-6.1) 10/19/18 06:30 Hgb 10.8 g/dL (12.0-16.0) L 10/19/18 06:30 Hct 33.8 % (36.0-48.0) L 10/19/18 06:30 MCV 87.3 fl (80.0-105.0) 10/19/18 06:30 MCH 27.9 pg (25.0-35.0) 10/19/18 06:30 MCHC 32.0 g/dl (31.0-37.0) 10/19/18 06:30 RDW 13.7 % (11.5-14.5) 10/19/18 06:30 Plt Count 298 10^3/uL (120.0-450.0) 10/19/18 06:30 MPV 10.6 fl (7.0-11.0) 10/19/18 06:30 Neut % (Auto) 49.4 % (50.0-68.0) L 10/19/18 06:30 Lymph % (Auto) 37.5 % (22.0-35.0) H 10/19/18 06:30 [place] % (Auto) 11.3 % (1.0-6.0) H 10/19/18 06:30 Eos % (Auto) 1.4 % (1.5-5.0) L 10/19/18 06:30 Baso % (Auto) 0.4 % (0.0-3.0) 10/19/18 06:30 Lymph # (Auto) 1.9 (1.2-3.4) 10/19/18 06:30 [place] # (Auto) 0.6 (0.1-0.6) 10/19/18 06:30 Eos # (Auto) 0.1 (0.0-0.7) 10/19/18 06:30 Baso # (Auto) 0.02 K/mm3 (0.0-2.0) 10/19/18 06:30 Absolute Neuts (auto) 2.54 (1.4-6.5) 10/19/18 06:30 PT 12.3 SECONDS (9.4-12.5) 10/16/18 14:00 INR 1.11 10/16/18 14:00 APTT 29.8 Seconds (26.9-38.3) 10/16/18 14:00 Sodium 142 mmol/L (132-148) 10/19/18 06:30 Potassium 4.0 mmol/L (3.6-5.0) 10/19/18 06:30 Chloride 106 mmol/L (98-107) 10/19/18 06:30 Carbon Dioxide 29 mmol/L (21-33) 10/19/18 06:30 Anion Gap 11 (10-20) 10/19/18 06:30 BUN 23 mg/dL (7-21) H 10/19/18 06:30 Creatinine 1.1 mg/dl (0.7-1.2) 10/19/18 06:30 Est GFR ( Amer) 59 10/19/18 06:30 Est GFR (Non-Af Amer) 49 10/19/18 06:30 Random Glucose 86 mg/dL (70-110) 10/19/18 06:30 Calcium 9.2 mg/dL (8.4-10.5) 10/19/18 06:30 Phosphorus 4.0 mg/dL (2.5-4.5) 10/17/18 07:00 Magnesium 1.8 mg/dL (1.7-2.2) 10/17/18 07:00 Total Bilirubin 0.2 mg/dL (0.2-1.3) 10/19/18 06:30 AST 31 U/L (14-36) 10/19/18 06:30 ALT 14 U/L (7-56) 10/19/18 06:30 Alkaline Phosphatase 68 U/L (38-126) 10/19/18 06:30 Lactate Dehydrogenase 575 U/L (333-699) 10/16/18 14:00 Total Creatine Kinase 96 U/L (35-230) 10/16/18 14:00 Troponin I < 0.01 ng/mL 10/17/18 01:00 NT-Pro-B Natriuret Pep 535 pg/mL (0-450) H 10/16/18 14:00 Total Protein 6.7 g/dL (5.8-8.3) 10/19/18 06:30 Albumin 3.4 g/dL (3.0-4.8) 10/19/18 06:30 Globulin 3.3 gm/dL 10/19/18 06:30 Albumin/Globulin Ratio 1.0 (1.1-1.8) L 10/19/18 06:30 Lipase 272 U/L (23-300) 10/16/18 14:00 Urine Color Straw (YELLOW) 10/16/18 14:00 Urine Appearance Clear (CLEAR) 10/16/18 14:00 Urine pH 6.5 (4.7-8.0) 10/16/18 14:00 Ur Specific [place] <= 1.005 (1.005-1.035) 10/16/18 14:00 Urine Protein Negative mg/dL (<30 mg/dL) 10/16/18 14:00 Urine Glucose (UA) Negative mg/dL (NEGATIVE) 10/16/18 14:00 Urine Ketones Negative mg/dL (NEGATIVE) 10/16/18 14:00 Urine Blood Negative (NEGATIVE) 10/16/18 14:00 Urine Nitrate Negative (NEGATIVE) 10/16/18 14:00 Urine Bilirubin Negative (NEGATIVE) 10/16/18 14:00 Urine Urobilinogen 0.2 E.U./dL (<1 E.U./dL) 10/16/18 14:00 Ur Leukocyte Esterase Negative Zachariah/uL (NEGATIVE) 10/16/18 14:00 Attending/Attestation - Attestation I have personally seen and examined this patient.: Yes I have fully participated in the care of the patient.: Yes I have reviewed all pertinent clinical information, including history, physical exam and plan: Yes Notes (Text): 10/19/18 17:28 73 year old female with past medical history of hypertension and PVD s/p stents who presented with complaint of fall and loss of consciousness. CT head was negative for acute findings. Xrays were negative for fractures; showed soft tissue swelling at left ankle. Serial cardiac enzymes were negative. Echocardiogram was reviewed. Orthostatics were negative. She was seen by cardiology who did stress test today; results pending. She was also seen by neurology requested CTA or carotid dopplers, both which she refused. She was seen by PT over the weekend who initially recommended TCU. However today her gait improved and now they recommended home with services; patient is agreeable. Discussed with ed case manager. Patient is discharged home to follow up with pmd. Follow up with cardiology and neurology. Will call with stress test results. Rodo Bruce MD Hospitalist.
[2018-10-19 18:54] VITALS: BP 150/69; PULSE 72; RESP 18; TEMP 97.9; O2SAT 100
== END 2018-10-19 18:30 | disposition home or self-care (01) ==
LOC: ED 12:27 → ERH 16:04 → 2RSO 22:02 → INTOOBSV 10-18 12:19 → OBSVTOIN 10-18 12:19
PROVIDERS: ADMIT Internal Medicine; ATTEND Internal Medicine
DX: R55 Syncope and collapse (principal); M25.572 Pain in left ankle and joints of left foot; M25.561 Pain in right knee; N39.3 Stress incontinence (female) (male); I10 Essential (primary) hypertension; J44.9 Chronic obstructive pulmonary disease, unspecified; E78.5 Hyperlipidemia, unspecified; E78.00 Pure hypercholesterolemia, unspecified; I73.9 Peripheral vascular disease, unspecified; H40.9 Unspecified glaucoma; N28.9 Disorder of kidney and ureter, unspecified; Z79.02 Long term (current) use of antithrombotics/antiplatelets; Z79.82 Long term (current) use of aspirin; Z91.81 History of falling
CPT/HCPCS: 36415; 70450; 71045; 73560; 73610; 80053; 81003; 82550; 83615; 83690; 83735; 83880; 84100; 84484; 85025; 85610; 85730; 93005; 93017; 93306; 97162; 97530; 99285; G0378; G8978; G8979; J1644; J1885